=== PATIENT | male | born 1945 | race Caucasian/White ===

== ENCOUNTER 2019-02-06 06:19 | Inpatient (IN) ==
--- NOTE | 2019-01-12 10:10 | PAT Medication Instructions ---
Medication Instructions Date of Service January 12, 2019 Home Medications ibuprofen [Advil] 200 mg PO Q6H PRN vit C,T-Uf-tydew-lutein-zeaxan [PreserVision AREDS-2] 1 tab PO DAILY ASK your surgeon for instructions ibuprofen [Advil] 200 mg PO Q6H PRN STOP taking 2 weeks before surgery (or as soon as possible if surgery is within 2 weeks) vit C,I-Ad-vpkgv-lutein-zeaxan [PreserVision AREDS-2] 1 tab PO DAILY Other Notes If you have any questions please call us at [phone] or [phone] or [phone] or [phone]
--- NOTE | 2019-01-13 10:46 | Anesthesiology Consultation ---
Date of Service January 13, 2019 Assessment & Plan (1) Encounter for pre-operative examination: Chart Review Chart Review: Acceptable Risk for Surgery and Patient seen in Pre Admission Testing Teaching & Discussion Pre-Anesthesia Teaching/Discussion Notes: Instructed NPO after midnight before surgery,except medications with 15 cc of water. Medication instructions provided according to the PAT guidelines. History Surgery Operation Date: 02/06/19 08:15 Proposed Procedures p Right Total Shoulder Arthroplasty versus - Chris Jenkins DO s Right Reverse Total Shoulder Arthroplasty - Chris Jenkins DO Height/Weight Height: 5 ft 10 in Weight: 116.2 kg Allergies Allergy/AdvReac Type Severity Reaction Status Date / Time Sulfa (Sulfonamide Allergy Hives Verified 01/01/19 08:04 Antibiotics) Medications Home Medications Medication Instructions Recorded Confirmed Last Taken ibuprofen [Advil] 200 mg PO Q6H PRN 01/01/19 01/13/19 Unknown vit C,K-Kc-htzkb-lutein-zeaxan 1 tab PO DAILY 01/01/19 01/13/19 Unknown [PreserVision AREDS-2] Past Medical History Medical History Diverticular disease [place] (hard of hearing) Obesity Osteoarthritis Exercise / Class Metabolic Activity III < 4 Walking/Shop/Light housework Past Family History Family History Father Colon cancer Past Surgical History Surgical History History of cardiac cath 20 years ago - no stents/angioplasty History of colonoscopy History of right hip replacement Past Anesthesia History No Hx of Anesthesia Complications and No Family Hx of Anesthesia Complications History of PONV No Hx of PONV and No Hx of Motion Sickness Social History Smoking Status: Never smoker Do You Dip or Chew Tobacco: No (remote hx) Hx Alcohol Use: Yes Alcohol type: beer alcohol intake frequency: holidays/special occasions only Hx Substance Use: No substance use type: does not use Review of Systems Patient denies chest pain, shortness of breath, reflux, cough, wheezing, palpitations. Physical Exam Vital Signs VITALS BP 135/85 P 78 TEMP 97.6 SP02 97%RA RESP 16 PHYSICAL Full neck and c-spine range of motion. Full TMJ range of motion. TMD 2.5 finger breaths Mallampati Score 3 Dentition: intact Lungs: clear throughout to auscultation Cardiac: regular rate and rhythm, no murmurs noted Spine: normal Carotid arteries: negative bruit Extremities: no edema Testing Laboratory Results 01/13/19 11:05 01/13/19 11:05 PT 9.9 Seconds (9.0-12.0) 01/13/19 11:05 INR 1.0 (0.9-1.1) 01/13/19 11:05 APTT 29.8 Seconds (21.0-31.0) 01/13/19 11:05 Blood Type O Positive 01/13/19 11:05 Antibody Screen NEGATIVE 01/13/19 11:05 Electrocardiogram Date: 01/13/19 Findings: + NSR @ (77) Chest X-Ray Date: 01/13/19 Findings: + NAD
[2019-01-13 11:43] LABS: Basophils # (auto) 0.03 K/uL (0-0.2); Basophils % (auto) 0.3 %; Eosinophils # (auto) 0.09 K/uL (0-0.5); Hematocrit (blood only) 46.2 % (42-52); Hemoglobin 15.6 g/dL (14.0-18.0); Immature Granulocytes # (auto) 0.02 K/uL (0.00-0.02); Immature Granulocytes % (auto) 0.2 %; Lymphocytes # (auto) 1.55 K/uL (1.2-3.4); Lymphocytes % (auto) 16.6 %; Mean Corpuscular Hemoglobin 31.5 pg (25-34); Mean Corpuscular Hgb Conc 33.8 g/dL (32-36); Mean Corpuscular Volume 93.3 fL (80-100); Mean Platelet Volume 9.7 fL (7.4-10.4); Monocytes # (auto) 1.13 K/uL (0.11-0.59); Monocytes % (auto) 12.1 %; Neutrophils # (auto) 6.53 K/uL (1.4-6.5); Neutrophils % (auto) 69.8 %; Platelet Count 354 K/uL (130-400); RDW Coefficient of Variation 13.6 % (11.5-14.5); RDW Standard Deviation 46.2 fL (36.4-46.3); Red Blood Count 4.95 M/uL (4.7-6.1); White Blood Count 9.35 K/uL (4.8-10.8)
--- NOTE | 2019-01-13 11:43 | XRay Report ---
XR chest Pre-admission PA/Lat CLINICAL HISTORY: Preoperative chest COMPARISON STUDY: No previous studies for comparison. FINDINGS: The cardiac and mediastinal contours are normal. There is no evidence of focal pulmonary co nsolidation. There is no evidence of failure. No pleural effusions are visualized.[ IMPRESSION: No active disease in the chest. Electronically signed by: Randy Orozco M.D. 01/13/2019 11:42 AM
[2019-01-13 11:51] LABS: BUN Creatinine Ratio 15.5 (10-20); Calcium 9.3 mg/dl (8.5-10.1); Creatinine Clr Calc Pharmacy 96.1 ml/min; Est GFR (African American) 99.2; Est GFR (Non-African American) 85.6; Potassium 4.4 mmol/L (3.5-5.1)
[2019-01-13 11:54] LABS: Partial Thromboplastin Ratio 1.1; Partial Thromboplastin Time 29.8 Seconds (21.0-31.0); Prothrombin Time 9.9 Seconds (9.0-12.0)
--- NOTE | 2019-02-05 14:58 | History & Physical Report ---
Date of Service February 05, 2019 Assessment & Plan (1) Osteoarthritis of right shoulder: We will proceed with a right total shoulder arthroplasty. Postoperatively he will be placed in a sling and kept overnight in the hospital for postoperative medical management. He plans to go to outpatient physical therapy at [facility] in [place] upon discharge. Present on Admission?: Yes History of Present Illness Chief Complaint: Primary osteoarthritis of the right shoulder Primary Care Provider: NO PCP Jeffy is a pleasant 73-year-old male who has been dealing with chronic increasing right shoulder pain. X-rays and clinical examination have been diagnostic for severe osteoarthritis of the right shoulder. After failing conservative treatment, he has elected to proceed with a right total shoulder arthroplasty. Allergies Allergy/AdvReac Type Severity Reaction Status Date / Time Sulfa (Sulfonamide Allergy Hives Verified 01/01/19 08:04 Antibiotics) Home Medications Home Medications Medication Instructions Recorded Confirmed Type ibuprofen [Advil] 200 mg PO Q6H PRN 01/01/19 01/13/19 History vit C,C-Fp-wajrc-lutein-zeaxan 1 tab PO DAILY 01/01/19 01/13/19 History [PreserVision AREDS-2] Past Med/Surg History Medical History Diverticular disease [place] (hard of hearing) Obesity Osteoarthritis Surgical History History of cardiac cath 20 years ago - no stents/angioplasty History of colonoscopy History of right hip replacement Family History Father Colon cancer Social History Preferred Language: [place] Communication Ability: Effective Senior [employer] Consultant Required: No Beliefs That Will Affect Care: None Current Living Situation: Spouse Feels Safe at Home: Yes Smoking Status: Never smoker Second Hand Exposure: No ; Hx Alcohol Use: Yes Alcohol type: beer Hx Substance Use: No Review of Systems All systems reviewed & are unremarkable except as noted in HPI & below Physical Exam Constitutional: WD/WN, vitals as above Eyes: PERRL, conjunctivae normal, anicteric sclerae ENMT: external ear and nose normal, oropharynx normal Neck: trachea midline, no thyromegaly Respiratory: normal respiratory effort Cardiovascular: RRR, no murmur, no edema Gastrointestinal (Abdomen): normal bowel sounds, soft, nontender, no hepatosplenomegaly Musculoskeletal: Physical examination of the right shoulder reveals decreased range of motion and crepitis throughout. There is good strength with full can testing and external rotation. There is tenderness palpation along the anterior glenohumeral joint line. The right upper extremity is neurovascularly intact. Psychiatric: A+Ox3, euthymic affect Results & Data Diagnostic Findings Radiographs of the right shoulder show osteoarthritis of the glenohumeral joint. There is joint space narrowing, osteophyte formation, and [id number]-[id number]-[id number] articulation.
[~2019-02-06 06:19] MED LIST: ACETAMINOPHEN 500 MG TAB PO SCH; CEFAZOLIN 2000MG 2,000 MG/15 ML SYR IV SCH; FAMOTIDINE 20 MG TAB PO SCH; GABAPENTIN 300 MG CAP PO SCH; LR 15ML/HR IV SCH; LR 60ML/HR IV SCH; ROPIVACAINE 0.5% HCL/PF 150 MG, BUPIVACAINE 0.5% MPF 30 ML, EPINEPHrine 30MG/30ML (OR U... INSTIL SCH; TRANEXAMIC ACID 1,000 MG **IV Intra-op IV SCH; TRANEXAMIC ACID 1,000 MG **IV Pre-op IV SCH
[2019-02-06] MEDS ORDERED: BUPIVACAINE 0.5 % 5 MG/1 ML PF 10ML VIAL ONE (06:25)
--- NOTE | 2019-02-06 06:45 | History & Physical Bridge Note ---
Date of Service February 06, 2019 History & Physical Bridge Note I have examined the patient, reviewed the History & Physical and in the interval since the performance of the History & Physical I have noted the following changes of clinical significance: no changes noted
[2019-02-06] MEDS ORDERED: dexAMETHasone 4 MG TAB PO ONE (07:04)
[2019-02-06] MEDS ORDERED: ONDANSETRON INJ 2 MG/ML 2 ML VIAL IV PRN ×2 (08:11→12:15)
[2019-02-06] MEDS ORDERED: fentaNYL citrate 100 MCG/2 ML VIAL IV PRN (08:11)
[2019-02-06] MEDS ORDERED: ePHEDrine sulfate 50 MG/ML AMP IV PRN (08:11)
[2019-02-06] MEDS ORDERED: ATROPINE SULFATE 0.1 MG/ML 10ML SYR IV PRN (08:11)
[2019-02-06] MEDS ORDERED: MIDAZOLAM HCL 1 MG/ML 2ML VIAL ONE (08:13)
[2019-02-06] MEDS ORDERED: fentaNYL citrate 100 MCG/2 ML VIAL ONE ×2 (08:13→09:51)
[2019-02-06] MEDS ORDERED: ORTHO JOINT ANESTHETIC ONE (08:17)
[2019-02-06] MEDS ORDERED: ROCURONIUM BROMIDE 10 MG/ML 5 ML VIAL ONE (09:47)
[2019-02-06] MEDS ORDERED: NEOSTIGMINE METHYLSULFATE 5 MG/5 ML SYR ONE (09:47)
[2019-02-06] MEDS ORDERED: DEXAMETHASONE SOD INJ 4 MG/ML VIAL ONE (09:47)
[2019-02-06] MEDS ORDERED: ONDANSETRON INJ 2 MG/ML 2 ML VIAL ONE (09:47)
[2019-02-06] MEDS ORDERED: PROPOFOL IV EMULSION 10 MG/ML 20 ML VIAL IV ONE (09:47)
[2019-02-06] MEDS ORDERED: GLYCOPYRROLATE 0.2 MG/ML VIAL ONE (09:47)
--- NOTE | 2019-02-06 10:12 | Operative Report ---
PG Post Operative Report Pre & Post Diagnosis Operation Date: 02/06/19 08:40 Pre-Op Diagnosis: RIGHT SHOULDER DEGERATIVE JOINT DISEASE Post-Op Diagnosis: RIGHT SHOULDER DEGERATIVE JOINT DISEASE I identified the patient and participated in the time-out.: Yes Procedure Operation Date: 02/06/19 08:40 Actual Procedures p Right Total Shoulder Arthroplasty(Right) - Chris Jenkins DO Surgeon Chris Jenkins DO Scoop Filler Chris Van PAC Estimated Blood Loss 250 Findings Consistent with Post-Op Diagnosis Specimens Right humeral head Complications none Disposition Disposition: Recovery Room Indications Jeffy is a pleasant 73-year-old male who presented my office with chronic increasing right shoulder pain. X-rays and clinical examination were diagnostic for primary osteoarthritis of the right shoulder. After failing conservative treatment, he elected to proceed with a right total shoulder arthroplasty. Description of Procedure Implants used: I used a Biomet Comprehensive total shoulder arthroplasty system with a size 16 press fit mini humeral stem, a size 50 x 21 eccentric humeral head, and a large size glenoid with a Regenerex peg. The glenoid was cemented in place with Palacos G cement. The patient arrived at [facility] for the above procedure. There were seen in the preoperative holding area and the operative extremity was identified and signed. They were given a preoperative antibiotic and an interscalene nerve block. They were taken back to the operating room, laid on table in supine position, and put under general anesthesia. They were then put into the beachchair position. The shoulder was then prepped and draped in sterile fashion. A timeout was done and the patient and the operative extremity was properly identified. A deltopectoral approach was used. Dissection was taken down through the fascia and the deltoid was retracted laterally and the conjoined tendon was retracted medially. The anterior shoulder was exposed. The long head of the biceps tendon was tenodesed to the upper border of the pectoralis major. The subscapularis was then released off the lesser tuberosity with a centimeter of cuff tissue remaining. The inferior capsule was released and the humeral head was dislocated. The rotator cuff was inspected and intact. A canal finding reamer was sent down the center of the humeral canal. Sequential reaming up to a size 16 reamer was done. Offset reamer a proximal humeral resection guide was placed. The proximal humerus was resected at 135 of inclination and 30 of retroversion. Inferior osteophytes were then removed and the glenoid was exposed. Time was spent doing an appropriate labral release. The glenoid measured to be a size large. A 3.2 mm Steinmann pin was placed in the central hole of the glenoid vault pin guide. The glenoid was then reamed with a propeller reamer. The central post cutter was then used to prepare for the central boss. The cannulated peripheral peg drill guide was then placed and 3 peg holes were drilled. The final size large glenoid was then cemented in place with Palacos G cement. Surrounding soft tissues were then injected with 100 cc of an orthopedic pain control cocktail. Once cement had dried the proximal humerus was once again exposed. Sequential broaching of the humerus up to a size 16 broach was done. Off that broach a size 50 x 21 eccentric humeral head was trialed. The shoulder was then reduced, brought through a full range of motion and felt to be stable. The shoulder was then dislocated and the broach was removed. The final size 16 mini humeral stem implant was then impacted into place. A size 50 x 21 eccentric humeral head was then impacted onto the humeral stem. The shoulder was then reduced and once again brought through a full range of motion and felt to be stable. The subscapularis was then tenodesed back to the lesser tuberosity with transosseous FiberWire sutures and side to side sutures with the arm in 45 of external rotation. 2 sutures were placed in the lateral rotator interval. A dilute betadyne lavage was then done for 3 minutes. The joint was then irrigated with normal saline solution. Hemostasis was obtained. The skin was then closed with 2-0 Vicryl, 3-0V lock suture, and carol. A soft dressing was placed as well as a regular arm sling. The patient was then extubated and transferred to a hospital bed. There were taken to the postanesthesia care unit in stable condition. The tolerated the procedure well. I attest to the content of the Intraoperative Record and any orders documented therein. Any exceptions are noted below.
--- NOTE | 2019-02-06 11:42 | Anesthesiology Progress Note ---
Date of Service February 06, 2019 Anesthesia Post Procedure Vital Signs Vital Signs: Temp Pulse Pulse Resp BP BP Pulse Ox 02/06/19 11:35 97.3 F L 72 20 115/41 L 95 02/06/19 11:25 70 18 104/71 95 02/06/19 11:15 70 15 104/62 96 02/06/19 11:05 70 19 115/70 96 02/06/19 10:55 68 16 125/68 96 02/06/19 10:49 96.8 F L 88 15 131/73 96 02/06/19 06:41 98.2 F 90 18 154/98 H 96 Transfer of Care Handoff Completed per policy Notes Mental Status: alert / awake / arousable and participated in evaluation Patient Amnestic to Procedure: Yes Nausea / Vomiting: adequately controlled Pain: adequately controlled Airway Patency, RR, SpO2: stable & adequate BP & HR: stable & adequate Hydration State: stable & adequate Anesthetic Complications: no major complications apparent and Pt Satisfied with anesthetic care
--- NOTE | 2019-02-06 11:45 | XRay Report ---
XR shoulder RT min 2V routine CLINICAL HISTORY: Post shoulder surgery COMPARISON STUDY: None. FINDINGS: Status post reverse right total shoulder arthroplasty. The hardware appears intact. Skin st aples are in place. There are low lung volumes with bibasilar densities suggesting atelectasis. The h eart is mildly enlarged. IMPRESSION: Status post reverse right total shoulder arthroplasty. No evidence for hardware complica tion. ACT 112: Negative or not required by law. Electronically signed by: Adolfo Ramirez M.D. 02/06/2019 11:44 AM
[2019-02-06] MEDS ORDERED: NALOXONE HCL 0.4 MG/1 ML VIAL/CARP IV PRN (12:15)
[2019-02-06] MEDS ORDERED: HYDROmorphone INJ 0.5 MG/0.5 ML SYR IV PRN (12:15)
[2019-02-06] MEDS ORDERED: OXYCODONE HCL IR 5 MG TAB (IMMEDIATE RELEASE) PO PRN (12:15)
[2019-02-06] MEDS ORDERED: bisacodyL 10 MG SUPP PR PRN (12:15)
[2019-02-06] MEDS ORDERED: MAGNESIUM HYDROXIDE SUSP 30 ML UDC PO PRN (12:15)
[2019-02-06] MEDS ORDERED: METOCLOPRAMIDE HCL INJ 5 MG/ML 2 ML VIAL IV PRN (12:15)
[2019-02-06] MEDS: SODIUM CHLORIDE 0.9% 1000ML 1,000 ML IV SCH ×2 (13:39→23:40)
[2019-02-06] MEDS ORDERED: COUGH DROP (SUGAR FREE) LOZ 24 LOZ/1 BOX BUCCAL PRN (13:54)
[2019-02-06] MEDS: ACETAMINOPHEN 500 MG TAB PO SCH ×2 (16:06→23:59)
[2019-02-06] MEDS: CEFAZOLIN 2000MG 2,000 MG/15 ML SYR IV SCH ×2 (16:06→23:59)
[2019-02-06] MEDS: KETOROLAC TROMETHAMINE 15 MG/ML VIAL IV SCH ×2 (17:27→23:59)
[2019-02-06] MEDS ORDERED: SENNA 8.6 MG TAB PO SCH (21:00)
[2019-02-06] MEDS: DOCUSATE SODIUM 100 MG CAP PO SCH (21:01)
[2019-02-07] MEDS: KETOROLAC TROMETHAMINE 15 MG/ML VIAL IV SCH ×2 (05:17→11:03)
[2019-02-07 06:51] LABS: Hematocrit (blood only) 40.4 % (42-52); Hemoglobin 13.5 g/dL (14.0-18.0); Immature Granulocytes # (auto) 0.05 K/uL (0.00-0.02); Immature Granulocytes % (auto) 0.2 %; Lymphocytes # (auto) 1.28 K/uL (1.2-3.4); Lymphocytes % (auto) 6.4 %; Mean Corpuscular Hemoglobin 31.5 pg (25-34); Mean Corpuscular Hgb Conc 33.4 g/dL (32-36); Mean Corpuscular Volume 94.4 fL (80-100); Mean Platelet Volume 9.2 fL (7.4-10.4); Monocytes # (auto) 2.17 K/uL (0.11-0.59); Monocytes % (auto) 10.8 %; Neutrophils # (auto) 16.65 K/uL (1.4-6.5); Neutrophils % (auto) 82.6 %; Platelet Count 350 K/uL (130-400); RDW Coefficient of Variation 13.2 % (11.5-14.5); RDW Standard Deviation 45.4 fL (36.4-46.3); Red Blood Count 4.28 M/uL (4.7-6.1); White Blood Count 20.15 K/uL (4.8-10.8)
[2019-02-07 07:33] LABS: BUN Creatinine Ratio 16.4 (10-20); Creatinine Clr Calc Pharmacy 79.4 ml/min; Est GFR (African American) 79.6; Est GFR (Non-African American) 68.7; Potassium 4.6 mmol/L (3.5-5.1)
[2019-02-07] MEDS: ACETAMINOPHEN 500 MG TAB PO SCH (07:41)
[2019-02-07] MEDS ORDERED: dexAMETHasone 4 MG TAB PO SCH (08:00)
--- NOTE | 2019-02-07 08:07 | Orthopedic Progress Note ---
Date of Service February 07, 2019 Assessment & Plan (1) History of total replacement of right shoulder joint: Overall he is doing very well. Is not having any pain in the right shoulder. He will be seen by physical therapy today for range of motion and ambulation. He can be discharged home later this morning. He will follow-up with orthopedics in 2 weeks. He does not want any pain medications upon discharge. Present on Admission?: Yes Subjective Jeffy was seen and examined at bedside this morning. Overall is doing very well. Is not having much pain in the right shoulder. He is happy with his progress to this point. He has no complaints. Physical Exam Musculoskeletal: On physical examination of the right shoulder, the dressing is clean and dry. He is wearing a sling as instructed. His radial, median, and ulnar nerves are checked and intact his wrist. His axillary nerve was not checked yet. Results & Data Vital Signs (Past 12 Hours) Vital Signs Temp Pulse Resp BP Pulse Ox 02/07/19 07:22 36.5 C 76 18 124/69 97 02/07/19 03:30 83 120/68 02/07/19 02:11 36.4 C L 77 16 161/84 H 96 02/06/19 23:17 36.4 C L 73 16 119/69 94 Laboratory Results H & H 01/13/19 02/07/19 Range/Units 11:05 06:31 Hgb 15.6 13.5 L (14.0-18.0) g/dL Hct 46.2 40.4 L (42-52) % Coagulation 01/13/19 Range/Units 11:05 INR 1.0 (0.9-1.1) Diagnostic Findings Postoperative x-rays of the right shoulder show the prosthesis to be in anatomic alignment without any evidence of fracture, dislocation, or loosening. PG Care Time/CCT Total # of Minutes Spent Total Time Spent with Patient: Total time spent is greater than 50% in coordination of care (as documented) at patient's floor/unit and/or counseling patient:
--- NOTE | 2019-02-07 08:08 | Discharge Summary ---
Date of Service February 07, 2019 Admission HPI Per Admitting Provider Jeffy is a pleasant 73-year-old male who has been dealing with chronic increasing right shoulder pain. X-rays and clinical examination have been diagnostic for severe osteoarthritis of the right shoulder. After failing conservative treatment, he has elected to proceed with a right total shoulder arthroplasty. Principal Diagnosis Right total shoulder arthroplasty Discharge Data Allergies Allergy/AdvReac Type Severity Reaction Status Date / Time Sulfa (Sulfonamide Allergy Hives Verified 02/06/19 06:40 Antibiotics) Consultations 02/06/19 12:15 Consult Case Management - Discharge Planning Routine Procedures Performed Operation Date: 02/06/19 08:40 Actual Procedures p Right Total Shoulder Arthroplasty(Right) - Chris Jenkins DO Ordered Studies 02/06/19 05:00 US - OR guided needle placemen Urgent Hospital Course (1) History of total replacement of right shoulder joint: On February 06, 2019 call arrived at [facility] and underwent a right total shoulder arthroplasty without complication. He had a general anesthetic and a right interscalene nerve block. Postoperatively he was placed in a sling and discharged to general orthopedic floors. His hospital course was uneventful. On postop day #1 his H&H was stable and his pain was well controlled. He was able to participate well with physical therapy doing ambulation and range of motion exercises. He was then discharged home with physical therapy. He will follow-up with orthopedics in 2 weeks. Total Time Total Time Spent Total Time Spent (In Minutes): 20 Discharge Plan Discharge Items Reason For Visit: RIGHT SHOULDER DEGERATIVE JOINT DISEASE Medications and DC Order Prescriptions: No Action ibuprofen [Advil] 200 mg Tablet 200 mg PO Q6H PRN (Reason: Pain) RF: 0 PreserVision AREDS-2 [id number]-mg Capsule 1 tab PO DAILY RF: 0 Admission Data Admit Date/Time: 02/06/19 10:51 Attending Provider: Chris Jenkins Admit Provider: Chris Jenkins Primary Care Provider: PCPHUNG
[2019-02-07] MEDS: DOCUSATE SODIUM 100 MG CAP PO SCH (08:46)
[2019-02-07] MEDS ORDERED: MULTIVITAMIN TAB PO SCH (09:00)
[2019-02-07] MEDS ORDERED: NON-FORMULARY MEDICATION (Vit C,E-Zn-Coppr-Lutein-Zeaxan [Preservision Areds-2] 1 TAB) PO SCH (09:00)
== END 2019-02-07 12:09 | disposition home or self-care (01) | DRG 483 ==
LOC: ASU 06:19 → 3E 10:51

== ENCOUNTER 2022-03-30 12:17 | Inpatient (IN) ==
[2022-03-30 13:38] LABS: Basophils # (auto) 0.04 K/uL (0-0.2); Basophils % (auto) 0.7 %; Eosinophils # (auto) 0.19 K/uL (0-0.50); Eosinophils % (auto) 3.2 %; Hematocrit (blood only) 39.8 % (42.0-52.0); Hemoglobin 13.9 g/dl (14.0-18.0); Immature Granulocytes # (auto) 0.01 K/uL (0.01-0.20); Immature Granulocytes % (auto) 0.2 %; Lymphocytes # (auto) 1.35 K/uL (1.2-3.4); Lymphocytes % (auto) 22.7 %; Mean Corpuscular Hemoglobin 30.8 pg (25.0-34.0); Mean Corpuscular Hgb Conc 34.9 g/dL (32.0-36.0); Mean Corpuscular Volume 88.2 fL (80.0-100.0); Mean Platelet Volume 9.5 fL (9.4-12.4); Monocytes # (auto) 0.95 K/uL (0.11-0.59); Neutrophils # (auto) 3.41 K/uL (1.40-6.50); Neutrophils % (auto) 57.2 %; Platelet Count 314 K/uL (130-400); RDW Coefficient of Variation 13.1 % (11.5-14.5); RDW Standard Deviation 42.3 fL (36.4-46.3); Red Blood Count 4.51 M/uL (4.70-6.10); White Blood Count 5.95 K/ul (4.8-10.8)
[2022-03-30 13:40] LABS: Appearance Urine Clear (Clear); Bilirubin Urine Negative (Negative); Blood Urine Negative (Negative); Color Urine Yellow; Glucose Urine UA Negative (Negative); Ketones Urine 1+ (Negative); Leukocyte Esterase Urine Negative (Negative); Nitrite Urine Negative (Negative); Protein Urine Negative (Negative); Specific Gravity Urine 1.013 (1.000-1.030); Urobilinogen Urine Negative (Negative); pH Urine 5.5 (4.5-7.5)
[2022-03-30] MEDS ORDERED: SODIUM CHLORIDE 0.9% 1000ML 1,000 ML IV ONE ×2 (13:55→16:29)
[2022-03-30 14:03] LABS: Albumin Globulin Ratio 1.4 (0.9-2); Albumin Level 4.1 gm/dl (3.4-5.0); BUN Creatinine Ratio 14.6 (10-20); Bilirubin,Total 1.2 mg/dl (0.2-1.0); Calcium 9.4 mg/dl (8.5-10.1); Creatinine Clr Calc Pharmacy 95.5 ml/min; Est GFR (Non-African American) 87.1 ml/min; Globulin 2.9 gm/dl (2.5-4.0); Potassium 4.3 mmol/L (3.5-5.1)
--- NOTE | 2022-03-30 14:14 | Emergency Department Note ---
Impression & Plan Acute pancreatitis, Acute hyponatremia ED Provider Note NAME: AYAD CORONA AGE: 76 SEX: M : 1945 ARRIVES VIA: Walk-In INFORMANT: Patient, ED PROVIDER(S): Chano Llanos DO CHIEF COMPLAINT: Abdominal pain HPI: The patient is a 76-year-old male who presented to the emergency department for an evaluation of abdominal pain. The patient presents with lower abdominal pain that he noticed with coughing and movement. He denies having any nausea or vomiting. He also describes generalized weakness and joint pain. He states that the symptoms began approximate 2 days ago. He denies having any fever. He denies having any rectal bleeding. He has not been seen by his family doctor for the symptoms. The patient was started on Keytruda recently and is unsure if this is related to his presentation today. ROS: See above HPI for pertinent positives & negatives. A total of 10 systems reviewed and were otherwise negative. PAST MEDICAL HISTORY: See Below PAST SURGICAL HISTORY: See Below FAMILY HISTORY: See Below SOCIAL HISTORY: See Below HOME MEDICATIONS: See Below ALLERGIES: See Below VITALS: See Below PHYSICAL EXAMINATION: GENERAL: Patient is awake alert in no acute distress patient is resting comf ortably and showing no signs of anxiety EYES: The conjunctivae are clear. The pupils are round and reactive. EARS, NOSE, MOUTH AND THROAT: The nose is without any evidence of any deformity. Mucous membranes are moist. Tongue is midline. NECK: The neck is nontender and supple. RESPIRATORY: Normal respiratory effort is noted there is no evidence of wheezing rhonchi or rales CARDIOVASCULAR: Regular rate and rhythm noted there no murmurs rubs or gallops normal S1 normal S2. GASTROINTESTINAL: The abdomen is soft and nondistended. There is right lower quadrant and suprapubic tenderness to palpation but no guarding or rigidity. MUSCULOSKELETAL/EXTREMITIES: There is no evidence of gross deformity full range of motion is noted in the hips and shoulders. SKIN: There is no obvious evidence of any rash. There are no petechiae, pallor or cyanosis noted. NEUROLOGIC: Patient is awake alert and oriented x3 MEDICAL DECISION MAKING: The patient is a 76-year-old male who presented to the emergency department for abdominal pain. The patient's history and physical exam appear to be consistent with an acute onset of pain over the last 48 hours. Patient's physical exam was concerning with significant pain. For this reason further laboratory and radi ographic studies were obtained. The patient was treated with IV fluids in the emergency department. He did not wish to have any pain medication while he was in the emergency department. He was concerned that his presentation today could be related to his new medication that he started. I discussed the patient's laboratory and radiographic studies with him. He was found to have signs of pancreatitis on CT but laboratory studies are reassuring. This would be a new diagnosis for the patient. He was also found to have hyponatremia. Because of his findings I discussed his condition with the on-call [facility] hospitalist. They have agreed to evaluate the patient in the emergency depar tment for further management and disposition. The patient was agreeable with inpatient work-up. Triage Nursing notes reviewed. Prior medical records reviewed Vital Signs: reviewed and remarkable for no significant abnormalities Differential diagnosis: Etiologies such as appendicitis, diverticulitis, obstruction, inflammatory bowel disease, renal colic, PUD, biliary pathology, pancreatitis, mesenteric ischemia, aortic pathology, infections, genitourinary, UTI, perforated viscus, as well as others were entertained. ER treatment provided: See below Diagnostics interpreted by me: ECG: none Cardiac Monitoring: An order was placed for continuous cardiac monitoring. The monitor shows a rate of 87 bpm with sinus rhythm. Laboratory studies: As stated above and show below. Imaging studies: See below. Radiographic imaging was reviewed by myself Consultation(s): I discussed this case with Dr. Falk [facility]. Past Med/Surg History Medical History (Updated 03/30/22 @ 17:07 by Musa Falk MD) Diverticular disease [place] (hard of hearing) Hypothyroidism Melanoma Diagnosed Feb 2021 - [facility] - not known to be metastatic. Last PET Jan 2022. 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 Beliefs That Will Affect Care: None marital status: Current Living Situation: Spouse Feels Safe at Home: Yes Assistive Devices: Glasses Allergies Allergies Allergy/AdvReac Type Severity Reaction Status Date / Time Sulfa (Sulfonamide Allergy Hives Verified 02/06/19 06:40 Antibiotics) Home Meds Home Medications Medication Instructions Recorded Confirmed ibuprofen 200 mg tablet (Advil) 200 mg PO Q6H PRN Pain 01/01/19 03/30/22 vit C 250 mg-vit E 90 mg-zinc 40 1 tab PO DAILY 01/01/19 03/30/22 mg-copper 1 [id number] capsule (PreserVision AREDS-2) levothyroxine 100 mcg tablet 100 mcg PO DAILY 03/30/22 03/30/22 Results & Data (ED) Vital Signs Vital Signs - 24 hr 03/30/22 12:24 03/30/22 13:40 03/30/22 14:00 Temperature 36.8 C Temperature Source Temporal Artery Scan Pulse Rate 84 Pulse Rate [Left Finger] 85 Pulse Rate from SpO2 Sensor Pulse Rhythm [Left Finger] Regular Pulse Strength [Left Finger] Normal Respiratory Rate 20 20 Respiratory Effort / Characteristics Non-Labored Spontaneous Non-Labored Spontaneous Respiratory Depth Normal Normal Respiratory Pattern Regular Regular Blood Pressure 114/71 106/60 Blood Pressure [Right Arm] 132/71 Blood Pressure Mean 85 75 Blood Pressure Mean [Right Arm] 91 Blood Pressure Position [Right Arm] Sitting Pulse Oximetry 96 97 Oxygen Delivery Method Room Air Room Air Sepsis Recent Fever Within 48 Hours No Sepsis New/Unexplained Change in Mental Status No Sepsis Action Taken by Nursing No Action Required 03/30/22 14:00 03/30/22 14:30 03/30/22 14:30 Temperature Temperature Source Pulse Rate 84 78 Pulse Rate [Left Finger] Pulse Rate from SpO2 Sensor 83 79 Pulse Rhythm [Left Finger] Pulse Strength [Left Finger] Respiratory Rate 19 16 Respiratory Effort / Characteristics Respiratory Depth Respiratory Pattern Blood Pressure 121/77 Blood Pressure [Right Arm] Blood Pressure Mean 91 Blood Pressure Mean [Right Arm] Blood Pressure Position [Right Arm] Pulse Oximetry 99 98 Oxygen Delivery Method Sepsis Recent Fever Within 48 Hours Sepsis New/Unexplained Change in Mental Status Sepsis Action Taken by Nursing 03/30/22 15:00 03/30/22 15:00 03/30/22 15:30 Temperature Temperature Source Pulse Rate 76 Pulse Rate [Left Finger] Pulse Rate from SpO2 Sensor 77 Pulse Rhythm [Left Finger] Pulse Strength [Left Finger] Respiratory Rate 4 L Respiratory Effort / Characteristics Respiratory Depth Respiratory Pattern Blood Pressure 99/57 L 115/62 Blood Pressure [Right Arm] Blood Pressure Mean 71 79 Blood Pressure Mean [Right Arm] Blood Pressure Position [Right Arm] Pulse Oximetry 97 Oxygen Delivery Method Sepsis Recent Fever Within 48 Hours Sepsis New/Unexplained Change in Mental Status Sepsis Action Taken by Nursing 03/30/22 15:30 03/30/22 16:00 03/30/22 16:01 Temperature Temperature Source Pulse Rate 77 82 Pulse Rate [Left Finger] Pulse Rate from SpO2 Sensor 80 Pulse Rhythm [Left Finger] Pulse Strength [Left Finger] Respiratory Rate 16 26 H Respiratory Effort / Characteristics Respiratory Depth Respiratory Pattern Blood Pressure 119/63 Blood Pressure [Right Arm] Blood Pressure Mean 81 Blood Pressure Mean [Right Arm] Blood Pressure Position [Right Arm] Pulse Oximetry 98 Oxygen Delivery Method Sepsis Recent Fever Within 48 Hours Sepsis New/Unexplained Change in Mental Status Sepsis Action Taken by Nursing 03/30/22 16:01 Temperature Temperature Source Pulse Rate 80 Pulse Rate [Left Finger] Pulse Rate from SpO2 Sensor 80 Pulse Rhythm [Left Finger] Pulse Strength [Left Finger] Respiratory Rate 10 L Respiratory Effort / Characteristics Respiratory Depth Respiratory Pattern Blood Pressure Blood Pressure [Right Arm] Blood Pressure Mean Blood Pressure Mean [Right Arm] Blood Pressure Position [Right Arm] Pulse Oximetry 99 Oxygen Delivery Method Sepsis Recent Fever Within 48 Hours Sepsis New/Unexplained Change in Mental Status Sepsis Action Taken by Group Home Medications Current Medication List: was personally reviewed by nm Laboratory Data Attestation: I reviewed the patient's lab results. 03/30/22 13:10 03/30/22 13:10 Lab Results 03/30/22 03/30/22 03/30/22 Range/Units 13:05 13:10 13:10 WBC 5.95 (4.8-10.8) K/ul RBC 4.51 L (4.70-6.10) M/uL Hgb 13.9 L (14.0-18.0) g/dl Hct 39.8 L (42.0-52.0) % MCV 88.2 (80.0-100.0) fL MCH 30.8 (25.0-34.0) pg MCHC 34.9 (32.0-36.0) g/dL RDW Std Deviation 42.3 (36.4-46.3) fL RDW Coeff of Joshua 13.1 (11.5-14.5) % Plt Count 314 (130-400) K/uL MPV 9.5 (9.4-12.4) fL Immature Gran % (Auto) 0.2 % Neut % (Auto) 57.2 % Lymph % (Auto) 22.7 % Howard % (Auto) 16.0 % Eos % (Auto) 3.2 % Baso % (Auto) 0.7 % Neut # (Auto) 3.41 (1.40-6.50) K/uL Lymph # (Auto) 1.35 (1.2-3.4) K/uL Howard # (Auto) 0.95 H (0.11-0.59) K/uL Eos # (Auto) 0.19 (0-0.50) K/uL Baso # (Auto) 0.04 (0-0.2) K/uL Immature Gran # (Auto) 0.01 (0.01-0.20) K/uL PT (9.0-12.0) Seconds INR (0.9-1.1) APTT (21.0-31.0) Seconds PTT Ratio Sodium 126 L (136-145) mmol/L Potassium 4.3 (3.5-5.1) mmol/L Chloride 93 L (98-107) mmol/L Carbon Dioxide 29 (21-32) mmol/L Anion Gap 4 (3-11) BUN 12 (6-23) mg/dl Creatinine 0.82 (0.6-1.4) mg/dl Est Cr Clr Drug Dosing 95.5 ml/min Est GFR ( Amer) 101.0 ml/min Est GFR (Non-Af Amer) 87.1 ml/min BUN/Creatinine Ratio 14.6 (10-20) Glucose 172 H (70-99(Fasting)) mg/dl Osmolality (280-300) mOsm/kg Calcium 9.4 (8.5-10.1) mg/dl Total Bilirubin 1.2 H (0.2-1.0) mg/dl AST 20 (13-39) U/L ALT 22 (7-52) U/L Alkaline Phosphatase 86 (34-104) U/L Total Creatine Kinase 121 (30-223) U/L Total Protein 7.0 (6.0-8.3) gm/dl Albumin 4.1 (3.4-5.0) gm/dl Globulin 2.9 (2.5-4.0) gm/dl Albumin/Globulin Ratio 1.4 (0.9-2) Triglycerides 103 (0-150) mg/dl Lipase 47 (11-82) U/L TSH (0.300-4.500) uIu/ml Free T4 (0.61-1.60) ng/dl Urine Color Urine Appearance (Clear) Urine pH (4.5-7.5) Ur Specific [place] (1.000-1.030) Urine Protein (Negative) Urine Glucose (UA) (Negative) Urine Ketones (Negative) Urine Blood (Negative) Urine Nitrite (Negative) Urine Bilirubin (Negative) Urine Urobilinogen (Negative) Ur Leukocyte Esterase (Negative) Ur Random Sodium mmol/L Lyme Disease IgG Ab (Negative) Lyme Disease IgM Ab (Negative) SARS-CoV-2 (PCR) NEGATIVE (Negative) Influenza Type A (PCR) Negative (Neg) Influenza Type B (PCR) Negative (Neg) RSV (RT-PCR) Negative (Neg) 03/30/22 03/30/22 03/30/22 Range/Units 13:10 13:10 13:10 WBC (4.8-10.8) K/ul RBC (4.70-6.10) M/uL Hgb (14.0-18.0) g/dl Hct (42.0-52.0) % MCV (80.0-100.0) fL MCH (25.0-34.0) pg MCHC (32.0-36.0) g/dL RDW Std Deviation (36.4-46.3) fL RDW Coeff of Joshua (11.5-14.5) % Plt Count (130-400) K/uL MPV (9.4-12.4) fL Immature Gran % (Auto) % Neut % (Auto) % Lymph % (Auto) % Howard % (Auto) % Eos % (Auto) % Baso % (Auto) % Neut # (Auto) (1.40-6.50) K/uL Lymph # (Auto) (1.2-3.4) K/uL Howard # (Auto) (0.11-0.59) K/uL Eos # (Auto) (0-0.50) K/uL Baso # (Auto) (0-0.2) K/uL Immature Gran # (Auto) (0.01-0.20) K/uL PT (9.0-12.0) Seconds INR (0.9-1.1) APTT (21.0-31.0) Seconds PTT Ratio Sodium (136-145) mmol/L Potassium (3.5-5.1) mmol/L Chloride (98-107) mmol/L Carbon Dioxide (21-32) mmol/L Anion Gap (3-11) BUN (6-23) mg/dl Creatinine (0.6-1.4) mg/dl Est Cr Clr Drug Dosing ml/min Est GFR ( Amer) ml/min Est GFR (Non-Af Amer) ml/min BUN/Creatinine Ratio (10-20) Glucose (70-99(Fasting)) mg/dl Osmolality 270 L (280-300) mOsm/kg Calcium (8.5-10.1) mg/dl Total Bilirubin (0.2-1.0) mg/dl AST (13-39) U/L ALT (7-52) U/L Alkaline Phosphatase (34-104) U/L Total Creatine Kinase (30-223) U/L Total Protein (6.0-8.3) gm/dl Albumin (3.4-5.0) gm/dl Globulin (2.5-4.0) gm/dl Albumin/Globulin Ratio (0.9-2) Triglycerides (0-150) mg/dl Lipase (11-82) U/L TSH (0.300-4.500) uIu/ml Free T4 (0.61-1.60) ng/dl Urine Color Yellow Urine Appearance Clear (Clear) Urine pH 5.5 (4.5-7.5) Ur Specific [place] 1.013 (1.000-1.030) Urine Protein Negative (Negative) Urine Glucose (UA) Negative (Negative) Urine Ketones 1+ H (Negative) Urine Blood Negative (Negative) Urine Nitrite Negative (Negative) Urine Bilirubin Negative (Negative) Urine Urobilinogen Negative (Negative) Ur Leukocyte Esterase Negative (Negative) Ur Random Sodium mmol/L Lyme Disease IgG Ab Negative (Negative) Lyme Disease IgM Ab Negative (Negative) SARS-CoV-2 (PCR) (Negative) Influenza Type A (PCR) (Neg) Influenza Type B (PCR) (Neg) RSV (RT-PCR) (Neg) 03/30/22 03/30/22 03/30/22 Range/Units 13:10 13:10 13:10 WBC (4.8-10.8) K/ul RBC (4.70-6.10) M/uL Hgb (14.0-18.0) g/dl Hct (42.0-52.0) % MCV (80.0-100.0) fL MCH (25.0-34.0) pg MCHC (32.0-36.0) g/dL RDW Std Deviation (36.4-46.3) fL RDW Coeff of Joshua (11.5-14.5) % Plt Count (130-400) K/uL MPV (9.4-12.4) fL Immature Gran % (Auto) % Neut % (Auto) % Lymph % (Auto) % Howard % (Auto) % Eos % (Auto) % Baso % (Auto) % Neut # (Auto) (1.40-6.50) K/uL Lymph # (Auto) (1.2-3.4) K/uL Howard # (Auto) (0.11-0.59) K/uL Eos # (Auto) (0-0.50) K/uL Baso # (Auto) (0-0.2) K/uL Immature Gran # (Auto) (0.01-0.20) K/uL PT 10.9 (9.0-12.0) Seconds INR 1.0 (0.9-1.1) APTT 36.8 H (21.0-31.0) Seconds PTT Ratio 1.3 Sodium (136-145) mmol/L Potassium (3.5-5.1) mmol/L Chloride (98-107) mmol/L Carbon Dioxide (21-32) mmol/L Anion Gap (3-11) BUN (6-23) mg/dl Creatinine (0.6-1.4) mg/dl Est Cr Clr Drug Dosing ml/min Est GFR ( Amer) ml/min Est GFR (Non-Af Amer) ml/min BUN/Creatinine Ratio (10-20) Glucose (70-99(Fasting)) mg/dl Osmolality (280-300) mOsm/kg Calcium (8.5-10.1) mg/dl Total Bilirubin (0.2-1.0) mg/dl AST (13-39) U/L ALT (7-52) U/L Alkaline Phosphatase (34-104) U/L Total Creatine Kinase (30-223) U/L Total Protein (6.0-8.3) gm/dl Albumin (3.4-5.0) gm/dl Globulin (2.5-4.0) gm/dl Albumin/Globulin Ratio (0.9-2) Triglycerides (0-150) mg/dl Lipase (11-82) U/L TSH 10.469 H (0.300-4.500) uIu/ml Free T4 0.74 (0.61-1.60) ng/dl Urine Color Urine Appearance (Clear) Urine pH (4.5-7.5) Ur Specific [place] (1.000-1.030) Urine Protein (Negative) Urine Glucose (UA) (Negative) Urine Ketones (Negative) Urine Blood (Negative) Urine Nitrite (Negative) Urine Bilirubin (Negative) Urine Urobilinogen (Negative) Ur Leukocyte Esterase (Negative) Ur Random Sodium 28 mmol/L Lyme Disease IgG Ab (Negative) Lyme Disease IgM Ab (Negative) SARS-CoV-2 (PCR) (Negative) Influenza Type A (PCR) (Neg) Influenza Type B (PCR) (Neg) RSV (RT-PCR) (Neg) Administered Medications Lactated Ringer's (Lr) 1,000 mls @ 200 mls/hr IV .Q5H BELÉN Stop: 03/31/22 05:28 Last Admin: 03/30/22 19:53 Dose: 200 mls/hr Documented By: ESTEE Discontinued Medications Sodium Chloride (Nss 1000ml) 1,000 mls @ 999 mls/hr IV .Q1H1M ONE Stop: 03/30/22 14:55 Last Infusion: 03/30/22 15:17 Dose: 0 mls/hr Documented By: Admin: 03/30/22 14:00 Dose: 999 mls/hr Documented By: FAIZAN Sodium Chloride (Nss 1000ml) 1,000 mls @ 999 mls/hr IV .Q1H1M ONE Stop: 03/30/22 17:29 Last Infusion: 03/30/22 19:33 Dose: 0 mls/hr Documented By: Admin: 03/30/22 17:02 Dose: 999 mls/hr Documented By: OBIE Imaging Data Radiologist's Impression: Abdomen/Pelvis CT 03/30/22 13:55 CT SCAN OF THE ABDOMEN AND PELVIS WITHOUT IV CONTRAST CLINICAL HISTORY: Right flank pain. COMPARISON STUDY: No priors. TECHNIQUE: CT scan of the abdomen and pelvis is performed from the lung bases to the proximal femora. Images are reviewed in the axial, sagittal, and coronal planes. IV contrast was not administered for this examination. A dose lowering technique was utilized adhering to the principles of ALARA. CT DOSE: 1059.69 mGy.cm FINDINGS: Lung bases: The heart is mildly enlarged and without pericardial effusion. A calcified granuloma is seen in the right middle lobe. The lung bases are otherwise clear noting bibasilar scarring/atelectasis. There is a small hiatal hernia. Liver: The unenhanced liver is normal in size, contour, and attenuation. There is no intrahepatic biliary ductal dilatation. Gallbladder: The gallbladder is mildly distended but otherwise normal in apoorva earance. Spleen: Normal in size and attenuation. Pancreas: The pancreas appears mildly edematous and there is peripancreatic inflammation and trace fluid. The appearance is typical for acute pancreatitis. Scattered parenchymal calcifications suggest this may be acute on chronic. There is no evidence of organized peripancreatic fluid collection. Adrenal glands: Unremarkable. Kidneys: The unenhanced kidneys are normal in size and without hydronephrosis. There are no renal calculi identified. There is no evidence of contour deforming renal mass lesion. Abdominal vasculature: The abdominal aorta is normal in course and caliber noting moderate atherosclerotic calcification. Bowel: There is moderate colonic diverticulosis without CT evidence of acute diverticulitis. No bowel obstruction is seen. The appendix is well-visualized and normal. Small duodenal diverticula are noted. Peritoneum: There is trace perihepatic ascites. No intraperitoneal free air is seen. There is a small fat-containing umbilical hernia. Lymphadenopathy: Prominent upper abdominal nodes are likely reactive. Pelvic viscera: Evaluation of the pelvis is degraded by streak artifact from a right hip arthroplasty. The prostate gland is mildly enlarged and heterogeneous. The bladder wall appears thickened/trabeculated indicating chronic outlet obstruction. There are small bilateral fat-containing inguinal hernias. Skeletal structures: The skeletal structures are osteopenic. There is moderate to advanced lumbosacral spondylosis as well as mild scoliosis. A 14 mm bone island is noted in the right sacrum. No lytic or blastic lesions are seen. A right hip arthroplasty is in place. Soft tissues: There are mildly enlarged and asymmetric lymph nodes seen in the left anterior chest wall/infraaxillary region. These measure up to 2.0 cm in length as seen on image #29. IMPRESSION: 1. Findings are consistent with acute on chronic pancreatitis. Correlate with clinical and laboratory findings. 2. There is no evidence of organized peripancreatic fluid collection on this unenhanced examination. 3. Trace perihepatic ascites. 4. There are mildly enlarged and asymmetric lymph nodes identified in the left anterior chest wall/infraaxillary region. These are pathologically indeterminate. Correlate with the patient's oncological history. Further workup may be indicated. [address] evidence of acute diverticular. 6. Additional findings as above. ACT 112: Negative or not required by law. Electronically signed by: Sterling Lopez M.D. 03/30/2022 2:48 PM Chest X-Ray 03/30/22 13:56 XR chest 1V portable HISTORY: Chest pain, nonspecific COMPARISON: Chest 01/13/2019. FINDINGS: No pneumothorax. No pleural effusions. There are low lung volumes. The cardiac silhouette is mildly enlarged. There is mild central pulmonary vascular congestion without overt edema. No new focal lung consolidations to suggest a pneumonia. There is a right shoulder prosthesis. Advanced degenerative changes within the left shoulder. A few bibasilar linear densities which favor subsegmental atelectasis. IMPRESSION: Cardiomegaly with mild congestive change. ACT 112: Negative or not required by law. Electronically signed by: Adolfo Ramirez M.D. 03/30/2022 2:15 PM Liver Ultrasound 03/30/22 16:30 US liver CLINICAL HISTORY: acute pancreatitis ?CBD dilatation COMPARISON STUDY: CT of the abdomen and pelvis performed earlier today. FINDINGS: No hepatic lesions are identified. There is no biliary ductal dilatati on. The common bile duct measures 4 mm in caliber. The gallbladder is moderately distended. There are no gallstones. No gallbladder wall thickening or pericholecystic fluid is present. There is no sonographic Tripathi sign. Pancreas is obscured by overlying bowel gas. There is no right hydronephrosis. IMPRESSION: 1. No gallstones or biliary ductal dilatation. 2. Distended gallbladder. No sonographic evidence for acute cholecystitis. 3. Obscured pancreas. ACT 112: Negative or not required by law. Electronically signed by: David Wilson M.D. 03/30/2022 6:22 PM Discharge Plan Visit Data Chief Complaint: Abdominal Pain Stated Complaint: POSSIBLE APPENDICITIS ED Provider: Chano Llanos Discharge Problem: Acute pancreatitis, Acute hyponatremia Patient Disposition: Admitted As Inpatient Discharge Instructions Interventions: ED Discharge Assessment Last Done: 03/30/22 19:29 : Acute pancreatitis Qualifiers: Pancreatitis type: unspecified pancreatitis type Acute pancreatitis complication: unspecified Qualified Code(s): K85.90 - Acute pancreatitis without necrosis or infection, unspecified
--- NOTE | 2022-03-30 14:17 | XRay Report ---
XR chest 1V portable HISTORY: Chest pain, nonspecific COMPARISON: Chest 01/13/2019. FINDINGS: No pneumothorax. No pleural effusions. There are low lung volumes. The cardiac silhouette i s mildly enlarged. There is mild central pulmonary vascular congestion without overt edema. No new fo bong lung consolidations to suggest a pneumonia. There is a right shoulder prosthesis. Advanced degene rative changes within the left shoulder. A few bibasilar linear densities which favor subsegmental at electasis. IMPRESSION: Cardiomegaly with mild congestive change. ACT 112: Negative or not required by law. Electronically signed by: Adolfo Ramirez M.D. 03/30/2022 2:15 PM
[2022-03-30 14:25] LABS: Influenza A virus by PCR Negative (Neg); Influenza B virus by PCR Negative (Neg); RSV by PCR Negative (Neg); SARS CoV2 RNA(COVID-19) Ceph NEGATIVE (Negative)
--- NOTE | 2022-03-30 14:50 | CT Scan Report ---
CT SCAN OF THE ABDOMEN AND PELVIS WITHOUT IV CONTRAST CLINICAL HISTORY: Right flank pain. COMPARISON STUDY: No priors. TECHNIQUE: CT scan of the abdomen and pelvis is performed from the lung bases to the proximal femora. Images are reviewed in the axial, sagittal, and coronal planes. IV contrast was not administered for this examination. A dose lowering technique was utilized adhering to the principles of ALARA. CT DOSE: 1059.69 mGy.cm FINDINGS: Lung bases: The heart is mildly enlarged and without pericardial effusion. A calcified granuloma is s een in the right middle lobe. The lung bases are otherwise clear noting bibasilar scarring/atelectasi s. There is a small hiatal hernia. Liver: The unenhanced liver is normal in size, contour, and attenuation. There is no intrahepatic kenn iary ductal dilatation. Gallbladder: The gallbladder is mildly distended but otherwise normal in appearance. Spleen: Normal in size and attenuation. Pancreas: The pancreas appears mildly edematous and there is peripancreatic inflammation and trace fl uid. The appearance is typical for acute pancreatitis. Scattered parenchymal calcifications suggest t his may be acute on chronic. There is no evidence of organized peripancreatic fluid collection. Adrenal glands: Unremarkable. Kidneys: The unenhanced kidneys are normal in size and without hydronephrosis. There are no renal bong culi identified. There is no evidence of contour deforming renal mass lesion. Abdominal vasculature: The abdominal aorta is normal in course and caliber noting moderate atheroscle rotic calcification. Bowel: There is moderate colonic diverticulosis without CT evidence of acute diverticulitis. No bowel obstruction is seen. The appendix is well-visualized and normal. Small duodenal diverticula are not ed. Peritoneum: There is trace perihepatic ascites. No intraperitoneal free air is seen. There is a small fat-containing umbilical hernia. Lymphadenopathy: Prominent upper abdominal nodes are likely reactive. Pelvic viscera: Evaluation of the pelvis is degraded by streak artifact from a right hip arthroplasty . The prostate gland is mildly enlarged and heterogeneous. The bladder wall appears thickened/trabecu lated indicating chronic outlet obstruction. There are small bilateral fat-containing inguinal hernia s. Skeletal structures: The skeletal structures are osteopenic. There is moderate to advanced lumbosacra l spondylosis as well as mild scoliosis. A 14 mm bone island is noted in the right sacrum. No lytic o r blastic lesions are seen. A right hip arthroplasty is in place. Soft tissues: There are mildly enlarged and asymmetric lymph nodes seen in the left anterior chest wa ll/infraaxillary region. These measure up to 2.0 cm in length as seen on image #29. IMPRESSION: 1. Findings are consistent with acute on chronic pancreatitis. Correlate with clinical and laboratory findings. 2. There is no evidence of organized peripancreatic fluid collection on this unenhanced examination. 3. Trace perihepatic ascites. 4. There are mildly enlarged and asymmetric lymph nodes identified in the left anterior chest wall/in fraaxillary region. These are pathologically indeterminate. Correlate with the patient's oncological history. Further workup may be indicated. [address] evidence of acute diverticular. 6. Additional findings as above. ACT 112: Negative or not required by law. Electronically signed by: Sterling Lopez M.D. 03/30/2022 2:48 PM
[2022-03-30 15:04] LABS: Lyme Ab IgG w/WB Rflx Negative (Negative); Lyme Ab IgM w/WB Rflx Negative (Negative)
--- NOTE | 2022-03-30 16:23 | History & Physical Report ---
Date of Service March 30, 2022 Assessment & Plan (1) Acute pancreatitis: Plan: Although he came in with right lower quadrant pain he has epigastric pain on examination consistent with his CT scan with inflammation of his pancreas Lipase is normal which suggest more of an acute on chronic process (also noted on CT) therefore possibly due to Keytruda Cortisol and TSH will also be taken as more common side effects of Keytruda CT was negative for CBD dilatation and LFTs normal however to completely investigate we will get ultrasound of his right upper quadrant to assess for CBD dilatation. If LFTs increasing recommend MRCP Triglycerides within normal limits No significant alcohol history 2 L normal saline bolus given in ER. Continue IV fluids with lactated Ringer's at 200 mL/h - careful monitoring of respiratory status on this due to mild congestive change noted on chest x-ray and mild perihepatic ascites noted on CT. Consult gastroenterology for consideration of EUS due to chronic pancreatitis findings although most likely this will be done as an outpatient (2) Acute hyponatremia: Plan: Suspect due to GI loss from pancreatitis. Suspect will increase with normal saline bolus, will check sodium level following this (3) Melanoma: Plan: With no known metastatic spread. Possible concerning lymph nodes noted on CT discussed with the patient and recommended close follow-up with his oncologist on discharge. (4) Hypothyroidism: Plan: Notably this can also be affected by Keytruda TSH Continue levothyroxine 100 mcg p.o. daily Plan VTE prophylaxis - Lovenox 40 mg SQ daily Diet - n.p.o. 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 His reports he is generally more fatigued the last 2 weeks. Experience severe generalized muscle pain on Saturday night, severity 8/10. He took ibuprofen for this and it improved the following morning. However he was left with right lower quadrant abdominal pain which has persisted to today. Associated decrease in appetite and he has not eaten for 2 days. Current severity 4-5/10. Associated nausea. No vomiting, constipation, diarrhea, melena or bright red blood in stool. He drinks 3-4 beers a year. No prior history of pancreatitis. He has been on Keytruda for multiple melanoma since July 12, 2021. He reports increased fatigue and sore joints on Keytruda but has otherwise tolerated it well. He is next scheduled for Keytruda on Saturday this coming week. In the ER his pain examined to be more epigastric than right lower quadrant. CT showed findings consistent with acute on chronic pancreatitis. Lipase was within normal limits. Allergies Allergy/AdvReac Type Severity Reaction Status Date / Time Sulfa (Sulfonamide Allergy Hives Verified 02/06/19 06:40 Antibiotics) Home Medications Medication Instructions Recorded Confirmed Type ibuprofen 200 mg tablet (Advil) 200 mg PO Q6H PRN Pain 01/01/19 03/30/22 History vit C 250 mg-vit E 90 mg-zinc 40 1 tab PO DAILY 01/01/19 03/30/22 History mg-copper 1 [id number]-[id number] capsule (PreserVision AREDS-2) levothyroxine 100 mcg tablet 100 mcg PO DAILY 03/30/22 03/30/22 History Past Med/Surg History Medical History (Updated 03/30/22 @ 17:07 by Musa Falk MD) Diverticular disease [place] (hard of hearing) Hypothyroidism Melanoma Diagnosed Feb 2021 - [facility] - not known to be metastatic. Last PET Jan 2022. 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 (~01/2019) Family History Father Colon cancer Social History Smoking Status: Light tobacco smoker Second Hand Exposure: No; Hx Alcohol Use: Yes Alcohol type: beer Hx Substance Use: No Preferred Language: Romanian Communication Ability: Effective Loading And Unloading Supervisor Required: No Beliefs That Will Affect Care: None marital status: Current Living Situation: Spouse Feels Safe at Home: Yes Assistive Devices: Glasses Review of Systems Review of Systems: All systems reviewed & are unremarkable except as noted in HPI & below Physical Exam Constitutional: WD/WN, vitals as above Eyes: + anicteric sclerae; normal pupil size Respiratory: normal respiratory effort, lungs clear to auscultation Cardiovascular: Rate/Rhythm: regular rate and regular rhythm Heart Sounds: + murmur (LUSB 2/6 JESIS) Extremities: normal capillary refill; no calf tenderness and no pedal edema Gastrointestinal (Abdomen): Inspection/Auscultation: abdomen normal to inspection; abdomen not distended Percussion/Palpation: + abdomen tender (Epigastric, no right lower quadrant tenderness) and abdomen soft; no guarding and abdomen not rigid Musculoskeletal: no cyanosis or clubbing, extremities motor strength 5/5 Skin: no rashes, warm and dry Neurologic: moves all extremities and awake; not confused Psychiatric: A+Ox3, euthymic affect Results & Data Results & Data ([facility]) Vital Signs (Past 12 Hours) Vital Signs Temp Pulse Pulse Resp BP BP Pulse Ox 03/30/22 15:00 76 4 L 97 03/30/22 15:00 99/57 L 03/30/22 14:30 78 16 98 03/30/22 14:30 121/77 03/30/22 14:00 84 19 99 03/30/22 14:00 106/60 03/30/22 13:40 85 20 132/71 97 03/30/22 12:24 36.8 C 84 20 114/71 96 O2 Del Method 03/30/22 15:00 03/30/22 15:00 03/30/22 14:30 03/30/22 14:30 03/30/22 14:00 03/30/22 14:00 03/30/22 13:40 Room Air 03/30/22 12:24 Room Air Laboratory Results Abnormal lab results 03/30/22 03/30/22 03/30/22 Range/Units 13:10 13:10 13:10 RBC 4.51 L (4.70-6.10) M/uL Hgb 13.9 L (14.0-18.0) g/dl Hct 39.8 L (42.0-52.0) % [place] # (Auto) 0.95 H (0.11-0.59) K/uL Sodium 126 L (136-145) mmol/L Chloride 93 L (98-107) mmol/L Glucose 172 H (70-99(Fasting)) mg/dl Osmolality (280-300) mOsm/kg Total Bilirubin 1.2 H (0.2-1.0) mg/dl TSH (0.300-4.500) uIu/ml Urine Ketones 1+ H (Negative) 03/30/22 03/30/22 Range/Units 13:10 13:10 RBC (4.70-6.10) M/uL Hgb (14.0-18.0) g/dl Hct (42.0-52.0) % [place] # (Auto) (0.11-0.59) K/uL Sodium (136-145) mmol/L Chloride (98-107) mmol/L Glucose (70-99(Fasting)) mg/dl Osmolality 270 L (280-300) mOsm/kg Total Bilirubin (0.2-1.0) mg/dl TSH 10.469 H (0.300-4.500) uIu/ml Urine Ketones (Negative) Diagnostic Findings XR chest 1V portable HISTORY: Chest pain, nonspecific COMPARISON: Chest 01/13/2019. FINDINGS: No pneumothorax. No pleural effusions. There are low lung volumes. The cardiac silhouette is mildly enlarged. There is mild central pulmonary vascular congestion without overt edema. No new focal lung consolidations to suggest a pneumonia. There is a right shoulder prosthesis. Advanced degenerative changes within the left shoulder. A few bibasilar linear densities which favor subsegmental atelectasis. IMPRESSION: Cardiomegaly with mild congestive change. CT SCAN OF THE ABDOMEN AND PELVIS WITHOUT IV CONTRAST CLINICAL HISTORY: Right flank pain. COMPARISON STUDY: No priors. TECHNIQUE: CT scan of the abdomen and pelvis is performed from the lung bases to the proximal femora. Images are reviewed in the axial, sagittal, and coronal planes. IV contrast was not administered for this examination. A dose lowering technique was utilized adhering to the principles of ALARA. CT DOSE: 1059.69 mGy.cm FINDINGS: Lung bases: The heart is mildly enlarged and without pericardial effusion. A calcified granuloma is seen in the right middle lobe. The lung bases are otherwise clear noting bibasilar scarring/atelectasis. There is a small hiatal hernia. Liver: The unenhanced liver is normal in size, contour, and attenuation. There is no intrahepatic biliary ductal dilatation. Gallbladder: The gallbladder is mildly distended but otherwise normal in appearance. Spleen: Normal in size and attenuation. Pancreas: The pancreas appears mildly edematous and there is peripancreatic inflammation and trace fluid. The appearance is typical for acute pancreatitis. Scattered parenchymal calcifications suggest this may be acute on chronic. There is no evidence of organized peripancreatic fluid collection. Adrenal glands: Unremarkable. Kidneys: The unenhanced kidneys are normal in size and without hydronephrosis. There are no renal calculi identified. There is no evidence of contour deforming renal mass lesion. Abdominal vasculature: The abdominal aorta is normal in course and caliber noting moderate atherosclerotic calcification. Bowel: There is moderate colonic diverticulosis without CT evidence of acute diverticulitis. No bowel obstruction is seen. The appendix is well-visualized and normal. Small duodenal diverticula are noted. Peritoneum: There is trace perihepatic ascites. No intraperitoneal free air is seen. There is a small fat-containing umbilical hernia. Lymphadenopathy: Prominent upper abdominal nodes are likely reactive. Pelvic viscera: Evaluation of the pelvis is degraded by streak artifact from a right hip arthroplasty. The prostate gland is mildly enlarged and heterogeneous. The bladder wall appears thickened/trabeculated indicating chronic outlet obstruction. There are small bilateral fat-containing inguinal hernias. Skeletal structures: The skeletal structures are osteopenic. There is moderate to advanced lumbosacral spondylosis as well as mild scoliosis. A 14 mm bone island is noted in the right sacrum. No lytic or blastic lesions are seen. A right hip arthroplasty is in place. Soft tissues: There are mildly enlarged and asymmetric lymph nodes seen in the left anterior chest wall/infraaxillary region. These measure up to 2.0 cm in length as seen on image #29. IMPRESSION: 1. Findings are consistent with acute on chronic pancreatitis. Correlate with clinical and laboratory findings. 2. There is no evidence of organized peripancreatic fluid collection on this unenhanced examination. 3. Trace perihepatic ascites. 4. There are mildly enlarged and asymmetric lymph nodes identified in the left anterior chest wall/infraaxillary region. These are pathologically indeterminate. Correlate with the patient's oncological history. Further workup may be indicated. [address] evidence of acute diverticular. 6. Additional findings as above. Medications Administered ER medications given: Normal saline 1 L bolus ECG Indication: abdominal pain Rate (beats per minute): 77 Rhythm: normal sinus Findings: no acute ischemic change Comparison ECG Date: from (January 13, 2019) Change: no significant change Code Status & VTE Plan Code Status Full VTE Prophylaxis Plan VTE Prophylaxis will be ordered: Yes PG Care Time/CCT Total # of Minutes Spent Total Time Spent with Patient: Total time spent is greater than 50% in coordination of care (as documented) at patient's floor/unit and/or counseling patient: Coding Level of Care Code 78558 INT INP/OBS CARE 375MIN Diagnoses Acute pancreatitis K85.90 Acute pancreatitis complication: unspecified Pancreatitis type: unspecified pancreatitis type Acute hyponatremia E87.1 Melanoma C43.9 Hypothyroidism E03.9 (1) Acute pancreatitis Acute pancreatitis complication: unspecified Pancreatitis type: unspecified p ancreatitis type Qualified Code(s): K85.90 - Acute pancreatitis without necrosis or infection, unspecified
[2022-03-30 16:35] LABS: Thyroid Stimulating Hormone 10.469 uIu/ml (0.300-4.500)
[2022-03-30 17:37] LABS: Partial Thromboplastin Ratio 1.3; Partial Thromboplastin Time 36.8 Seconds (21.0-31.0); Prothrombin Time 10.9 Seconds (9.0-12.0)
--- NOTE | 2022-03-30 18:23 | Ultrasound Report ---
US liver CLINICAL HISTORY: acute pancreatitis ?CBD dilatation COMPARISON STUDY: CT of the abdomen and pelvis performed earlier today. FINDINGS: No hepatic lesions are identified. There is no biliary ductal dilatation. The common bile d uct measures 4 mm in caliber. The gallbladder is moderately distended. There are no gallstones. No ga llbladder wall thickening or pericholecystic fluid is present. There is no sonographic Tripathi sign. P ancreas is obscured by overlying bowel gas. There is no right hydronephrosis. IMPRESSION: 1. No gallstones or biliary ductal dilatation. 2. Distended gallbladder. No sonographic evidence for acute cholecystitis. 3. Obscured pancreas. ACT 112: Negative or not required by law. Electronically signed by: David Wilson M.D. 03/30/2022 6:22 PM
[2022-03-30 18:28] LABS: T4 Free Thyroxine 0.74 ng/dl (0.61-1.60)
[2022-03-30] MEDS: LACTATED RINGER'S 1,000 ML IV SCH (19:53)
[2022-03-30] MEDS ORDERED: ACETAMINOPHEN 1,000 MG/100 ML VIAL IV PRN (20:51)
[2022-03-30] MEDS ORDERED: ONDANSETRON INJ 2 MG/ML 2 ML VIAL IV PRN (20:52)
[2022-03-30] MEDS ORDERED: HYDROmorphone INJ 0.5 MG/0.5 ML SYR IV PRN ×2 (20:52)
[2022-03-30] MEDS: ENOXAPARIN INJ 40 MG/0.4 ML SYR SQ SCH (22:00)
[2022-03-31] MEDS: LACTATED RINGER'S 1,000 ML IV SCH (01:31)
[2022-03-31] MEDS: LEVOTHYROXINE SODIUM 100 MCG TABLET PO SCH (06:04)
[2022-03-31 07:25] LABS: Basophils # (auto) 0.04 K/uL (0-0.2); Basophils % (auto) 0.6 %; Eosinophils # (auto) 0.16 K/uL (0-0.50); Eosinophils % (auto) 2.5 %; Hematocrit (blood only) 39.1 % (42.0-52.0); Hemoglobin 13.1 g/dl (14.0-18.0); Immature Granulocytes # (auto) 0.02 K/uL (0.01-0.20); Immature Granulocytes % (auto) 0.3 %; Lymphocytes # (auto) 1.27 K/uL (1.2-3.4); Lymphocytes % (auto) 19.4 %; Mean Corpuscular Hemoglobin 30.2 pg (25.0-34.0); Mean Corpuscular Hgb Conc 33.5 g/dL (32.0-36.0); Mean Corpuscular Volume 90.1 fL (80.0-100.0); Mean Platelet Volume 9.6 fL (9.4-12.4); Monocytes # (auto) 0.96 K/uL (0.11-0.59); Monocytes % (auto) 14.7 %; Neutrophils # (auto) 4.08 K/uL (1.40-6.50); Neutrophils % (auto) 62.5 %; Platelet Count 287 K/uL (130-400); RDW Standard Deviation 43.1 fL (36.4-46.3); Red Blood Count 4.34 M/uL (4.70-6.10); White Blood Count 6.53 K/ul (4.8-10.8)
--- NOTE | 2022-03-31 07:49 | Gastrointestinal Consultation ---
Date of Consultation March 31, 2022 Assessment & Plan (1) Acute pancreatitis: Acute pancreatitis likely from Keytruda. This will often give you a atypical type presentation. Assessment chronic changes that are likely significant at this time, I would continue with characteristic pancreatitis treatments with IV fluids, pain control, pain is controlled he can start a low-fat liquid only diet and then advance as tolerated. Not unreasonable to obtain an outpatient EUS in 4 to 6 weeks time after resolution of the symptoms. We will need to discuss with oncology if they feel that Keytruda should be continued. There is no evidence of colitis or other proximal GI disease which can happen with these types of immunotherapy medications. No role for acute procedure at this time, continue supportive care call with questions Of note would closely monitor IV fluids resuscitation given his hyponatremia, Isotonic fluids with lactated Ringer's would be the drug of choice, I would follow his hematocrit to ensure that it declines carefully given his hyponatremia. History of Present Illness Reason for Consultation: Concern for pancreatitis Attending Physician: Fabiano Hernandez History of Present Illness Covering gentleman with a history of for Dr. Smith today I was asked to see this gentleman who is a 76-year-old melanoma on Keytruda who has had 13 treatments and presents with the acute onset of right upper and right lower quadrant abdominal pain. This came on insidiously and is described as a sharp pain that is worse with lying down and moving around, mild worsening with eating, no evidence of vomiting but does have an associated nausea with it He does note general fatigue over the last 2 weeks, no evidence of recent alcohol usage. On his evaluation he was noted to have normal LFTs as well as normal lipase, however he had surrounding edema and peripancreatic inflammation likely consistent with pancreatitis no complications fluid collections or other concerns. He has had no change in bowel habits to be concerned of peptic ulcer disease he states that his pain is controlled with analgesics. There is some concern chronic pancreatitis with reticulocyte stones noted in the pancreatic parenchyma without any obstructive features. Laboratory studies showed a normal white count, hematocrit of 39, sodium was 126 on presentation. TSH was 10.4. Ultrasound failed to show any evidence of gallstones, biliary ductal dilatation, or cholecystitis. Allergies Allergy/AdvReac Type Severity Reaction Status Date / Time Sulfa (Sulfonamide Allergy Hives Verified 02/06/19 06:40 Antibiotics) Home Medications Medication Instructions Recorded Confirmed Type ibuprofen 200 mg tablet (Advil) 200 mg PO Q6H PRN Pain 01/01/19 03/30/22 History vit C 250 mg-vit E 90 mg-zinc 40 1 tab PO DAILY 01/01/19 03/30/22 History mg-copper 1 [id number] capsule (PreserVision AREDS-2) levothyroxine 100 mcg tablet 100 mcg PO DAILY 03/30/22 03/30/22 History Patient History Medical History Diverticular disease [place] (hard of hearing) Hypothyroidism Melanoma Diagnosed Feb 2021 - [facility] - not known to be metastatic. Last PET Jan 2022. 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 (~01/2019) Family History Father Colon cancer Social History Smoking Status: Never smoker Second Hand Exposure: No; Hx Alcohol Use: Yes Alcohol type: beer Hx Substance Use: No Preferred Language: Somali Communication Ability: Effective Hvac Field Service Technician Required: No Beliefs That Will Affect Care: None marital status: Current Living Situation: Spouse Feels Safe at Home: Yes Safety Concerns: Feels Safe At This Time Assistive Devices: Glasses Review of Systems Review of Systems: 10 system review negative except for stated as above Physical Exam Physical Exam: Awake alert oriented x3 Heart regular Lungs are clear Abdomen is soft nontender hypoactive bowel sounds No peripheral edema Easily sits up in bed She is Results & Data ([facility]) Vital Signs (Past 12 Hours) Vital Signs Temp Pulse Resp BP Pulse Ox O2 Del Method 03/31/22 07:09 37.3 C 81 16 104/64 96 Room Air 03/30/22 20:00 36.6 C 83 18 149/54 H 97 Room Air (1) Acute pancreatitis Acute pancreatitis complication: unspecified Pancreatitis type: unspecified pancreatitis type Qualified Code(s): K85.90 - Acute pancreatitis without necrosis or infection, unspecified
[2022-03-31 08:02] LABS: Albumin Globulin Ratio 1.2 (0.9-2); Albumin Level 3.4 gm/dl (3.4-5.0); BUN Creatinine Ratio 9.1 (10-20); Bilirubin,Total 0.9 mg/dl (0.2-1.0); Calcium 8.7 mg/dl (8.5-10.1); Creatinine Clr Calc Pharmacy 118.8 ml/min; Est GFR (African American) 110.4 ml/min; Est GFR (Non-African American) 95.2 ml/min; Globulin 2.8 gm/dl (2.5-4.0); Potassium 4.3 mmol/L (3.5-5.1); Total Protein 6.2 gm/dl (6.0-8.3)
--- NOTE | 2022-03-31 08:34 | Hospitalist Progress Note ---
Date of Service March 31, 2022 Assessment & Plan (1) Acute pancreatitis: Plan: Although he came in with right lower quadrant pain he has epigastric pain on examination consistent with his CT scan with inflammation of his pancreas Lipase is normal which suggest more of an acute on chronic process (also noted on CT with scattered parenchymal calcifications suggest this may be acute on chronic) therefore possibly due to Keytruda Cortisol and TSH will also be taken as more common side effects of Keytruda Per patient he has been on Synthroid now for several months to 1 year and they are titrating this. CT was negative for CBD dilatation and LFTs normal however to completely investigate we will get ultrasound of his right upper quadrant to assess for CBD dilatation. U/S revealed no gall stones and CBD measured at 4mm If LFTs increasing recommend MRCP Triglycerides within normal limits GI consulted and recommended supportive care with IVFs and pain control and once pain was controlled could start clears and eventually increase to a low fat diet. Patient states his pain has improved from a 7-9/10 to a 1-3 /10 Will start clear liquid diet and if tolerates, possibly increase to low fat diet tomorrow AM GI also recommended a EUS in 4-6 weeks to further evaluate the pancreas. Will check IgG4 to rule out autoimmune pancreatitis I called Patient's oncology clinic in [facility] regarding the Keytruda. They are not open until Saturday. Advised patient and his if they are still here Saturday I jerman call back otherwise they should call the [facility] clinic Saturday. Patient is tolerating clear liquids this afternoon Changed IV Tylenol to po Continue IV Dilaudid for pain >6 (2) Acute hyponatremia: Plan: Suspect due to GI loss from pancreatitis. Suspect will increase with normal saline bolus, will check sodium level following this (3) Melanoma: Plan: With no known metastatic spread. Possible concerning lymph nodes noted on CT discussed with the patient and recommended close follow-up with his oncologist on discharge. (4) Hypothyroidism: Plan: Notably this can also be affected by Keytruda TSH elevated at 10.4 (per was much higher and PCP has been titrating the Levothyroxine) Continue levothyroxine 100 mcg p.o. daily for now Plan VTE prophylaxis - Lovenox 40 mg SQ daily Diet - clear liquids Disposition -admit to [facility] Admission and Anticipated Discharge Date Admission Date: March 30, 2022 Subjective Patient is awake sitting up in bed. His is at the bedside. Patient states his abdominal pain has improved with the IVFs. His pain was a 7-9/10 and currently is 1-3. He states he is slightly hungry and would like to try and eat something. He denies any nausea, vomiting, chest pain, SOB or dyspnea. He denies ever having pancreatitis in the past. He states he has ETOH a few times per year and his last intake was in December. It appears his wfe may disagree wth this and rolled her eyes. I will try and talk to her via the phone later today or tomorrow. He states he used to drink more and "would drink too much" but not as much as his . Patient has been on Synthroid now for about the past year. And his doctor is titrating the dose. He is 2/[address] through his Keytruda and states he has a treatment next week. Review of Systems Review of Systems: + ROS as above all other ROS negative Physical Exam Constitutional: WD/WN, vitals as above Neck: trachea midline, no thyromegaly Respiratory: normal respiratory effort, lungs clear to auscultation Cardiovascular: Rate/Rhythm: regular rate and regular rhythm Heart Sounds: normal S1, normal S2 and + murmur Extremities: normal capillary refill; no calf tenderness and no edema 2/6 JESSI Gastrointestinal (Abdomen): Inspection/Auscultation: abdomen normal to inspection, + abdomen distended and normal bowel sounds Percussion/Palpation: abdomen soft abdomen distended but soft and patient states abdomen is normally this size, no R/R/G Mild tender to palpation RUQ Skin: scar posterior head from melanoma resection Psychiatric: A+Ox3, euthymic affect Results & Data Results & Data ([facility]) Vital Signs (Past 12 Hours) Vital Signs Temp Pulse Resp BP Pulse Ox O2 Del Method 03/31/22 07:09 37.3 C 81 16 104/64 96 Room Air Laboratory Results Abnormal lab results 03/30/22 03/30/22 03/30/22 Range/Units 13:10 13:10 13:10 RBC (4.70-6.10) M/uL Hgb (14.0-18.0) g/dl Hct (42.0-52.0) % [place] # (Auto) (0.11-0.59) K/uL APTT 36.8 H (21.0-31.0) Seconds Sodium (136-145) mmol/L BUN/Creatinine Ratio (10-20) Glucose (70-99(Fasting)) mg/dl Osmolality 270 L (280-300) mOsm/kg TSH 10.469 H (0.300-4.500) uIu/ml Urine Osmolality (500-800) mOsm/kg 03/30/22 03/30/22 03/31/22 Range/Units 21:13 Unknown 06:31 RBC 4.34 L (4.70-6.10) M/uL Hgb 13.1 L (14.0-18.0) g/dl Hct 39.1 L (42.0-52.0) % [place] # (Auto) 0.96 H (0.11-0.59) K/uL APTT (21.0-31.0) Seconds Sodium 131 L (136-145) mmol/L BUN/Creatinine Ratio (10-20) Glucose (70-99(Fasting)) mg/dl Osmolality (280-300) mOsm/kg TSH (0.300-4.500) uIu/ml Urine Osmolality 380 L (500-800) mOsm/kg 03/31/22 Range/Units 06:31 RBC (4.70-6.10) M/uL Hgb (14.0-18.0) g/dl Hct (42.0-52.0) % [place] # (Auto) (0.11-0.59) K/uL APTT (21.0-31.0) Seconds Sodium 133 L (136-145) mmol/L BUN/Creatinine Ratio 9.1 L (10-20) Glucose 118 H (70-99(Fasting)) mg/dl Osmolality (280-300) mOsm/kg TSH (0.300-4.500) uIu/ml Urine Osmolality (500-800) mOsm/kg PG Care Time/CCT Total # of Minutes Spent Total Time Spent with Patient: Total time spent is greater than 50% in coordination of care (as documented) at patient's floor/unit and/or counseling patient: Coding Level of Care Code 15893 SUB INP/OBS CARE 2/35MIN Diagnoses Acute pancreatitis K85.90 Acute pancreatitis complication: unspecified Pancreatitis type: unspecified pancreatitis type Acute hyponatremia E87.1 Melanoma C43.9 Hypothyroidism E03.9 (1) Acute pancreatitis Acute pancreatitis complication: unspecified Pancreatitis type: unspecified pancreatitis type Qualified Code(s): K85.90 - Acute pancreatitis without necrosis or infection, unspecified
[2022-03-31] MEDS ORDERED: HYDROmorphone INJ 0.5 MG/0.5 ML SYR IV PRN (14:55)
[2022-03-31] MEDS: ACETAMINOPHEN 325 MG TAB PO PRN ×2 (17:13→21:52)
[2022-03-31] MEDS: ENOXAPARIN INJ 40 MG/0.4 ML SYR SQ SCH (21:00)
[2022-04-01] MEDS: LEVOTHYROXINE SODIUM 100 MCG TABLET PO SCH (05:46)
[2022-04-01 07:35] LABS: Hematocrit (blood only) 37.3 % (42.0-52.0); Mean Corpuscular Hemoglobin 30.4 pg (25.0-34.0); Mean Corpuscular Hgb Conc 34.9 g/dL (32.0-36.0); Mean Corpuscular Volume 87.4 fL (80.0-100.0); Mean Platelet Volume 9.9 fL (9.4-12.4); Platelet Count 292 K/uL (130-400); RDW Coefficient of Variation 12.6 % (11.5-14.5); RDW Standard Deviation 40.5 fL (36.4-46.3); Red Blood Count 4.27 M/uL (4.70-6.10); White Blood Count 4.44 K/ul (4.8-10.8)
[2022-04-01 07:57] LABS: Albumin Level 3.8 gm/dl (3.4-5.0); BUN Creatinine Ratio 7.8 (10-20); Bilirubin Direct 0.2 mg/dl (0-0.2); Bilirubin,Total 1.2 mg/dl (0.2-1.0); Calcium 8.6 mg/dl (8.5-10.1); Creatinine Clr Calc Pharmacy 122.5 ml/min; Est GFR (African American) 111.8 ml/min; Est GFR (Non-African American) 96.5 ml/min; Total Protein 6.5 gm/dl (6.0-8.3)
--- NOTE | 2022-04-01 14:10 | Discharge Summary ---
Date of Service April 01, 2022 Admission HPI Per Admitting Provider Jeffy Coronado is a 76 year old male with multiple melanoma on Keytruda who presents to the ER with abdominal pain. His reports he is generally more fatigued the last 2 weeks. Experience severe generalized muscle pain on Saturday night, severity 8/10. He took ibuprofen for this and it improved the following morning. However he was left with right lower quadrant abdominal pain which has persisted to today. Associated decrease in appetite and he has not eaten for 2 days. Current severity 4-5/10. Associated nausea. No vomiting, constipation, diarrhea, melena or bright red blood in stool. He drinks 3-4 beers a year. No prior history of pancreatitis. He has been on Keytruda for multiple melanoma since July 12, 2021. He reports increased fatigue and sore joints on Keytruda but has otherwise tolerated it well. He is next scheduled for Keytruda on Saturday this coming week. In the ER his pain examined to be more epigastric than right lower quadrant. CT showed findings consistent with acute on chronic pancreatitis. Lipase was within normal limits. Admission Exam Per Admitting Provider Constitutional: WD/WN, vitals as above Eyes: + anicteric sclerae; normal pupil size Respiratory: normal respiratory effort, lungs clear to auscultation Cardiovascular: Rate/Rhythm: regular rate and regular rhythm Heart Sounds: + murmur (LUSB 2/6 JESSI) Extremities: normal capillary refill; no calf tenderness and no pedal edema Gastrointestinal (Abdomen): Inspection/Auscultation: abdomen normal to inspection; abdomen not distended Percussion/Palpation: + abdomen tender (Epigastric, no right lower quadrant tenderness) and abdomen soft; no guarding and abdomen not rigid Musculoskeletal: no cyanosis or clubbing, extremities motor strength 5/5 Skin: no rashes, warm and dry Neurologic: moves all extremities and awake; not confused Psychiatric: A+Ox3, euthymic affect Principal Diagnosis Acute pancreatitis Discharge Exam Constitutional WD/WN, vitals as above Neck trachea midline, no thyromegaly Respiratory normal respiratory effort, lungs clear to auscultation Cardiovascular Rate/Rhythm: regular rate and regular rhythm Heart Sounds: normal S1, normal S2 and + murmur Extremities: normal capillary refill; no calf tenderness and no edema Gastrointestinal (Abdomen) Inspection/Auscultation: abdomen normal to inspection, + abdomen distended and normal bowel sounds Percussion/Palpation: abdomen soft; abdomen nontender, no guarding, abdomen not rigid and no hepatosplenomegaly Psychiatric A+Ox3, euthymic affect Discharge Data Allergies Allergy/AdvReac Type Severity Reaction Status Date / Time Sulfa (Sulfonamide Allergy Hives Verified 02/06/19 06:40 Antibiotics) Consultations 03/30/22 15:39 ED Decision to Admit Stat 03/30/22 23:16 Consult Gastroenterology Routine Ordered Studies 03/30/22 13:55 CT abd pelvis wo con Stat 1. Findings are consistent with acute on chronic pancreatitis. Correlate with clinical and laboratory findings. 2. There is no evidence of organized peripancreatic fluid collection on this unenhanced examination. 3. Trace perihepatic ascites. 4. There are mildly enlarged and asymmetric lymph nodes identified in the left anterior chest wall/infraaxillary region. These are pathologically indeterminate. Correlate with the patient's oncological history. Further workup may be indicated. [address] Colonic [address] without CT evidence of acute diverticular. 6. Additional findings as above. 03/30/22 16:30 US liver Stat 1. No gallstones or biliary ductal dilatation. 2. Distended gallbladder. No sonographic evidence for acute cholecystitis. 3. Obscured pancreas Hospital Course (1) Acute pancreatitis: Although he came in with right lower quadrant pain he has epigastric pain on examination consistent with his CT scan with inflammation of his pancreas Lipase was normal which suggest more of an acute on chronic process (also noted on CT with scattered parenchymal calcifications - suggest this may be acute on chronic) therefore possibly due to Keytruda Cortisol and TSH will also be taken as more common side effects of Keytruda Per patient he has been on Synthroid now for several months to 1 year and they are titrating this. CT was negative for CBD dilatation and LFTs normal however to completely investigate we will get ultrasound of his right upper quadrant to assess for CBD dilatation. U/S revealed no gall stones and CBD measured at 4mm If LFTs increasing recommend MRCP Triglycerides within normal limits GI consulted and recommended supportive care with IVFs and pain control and once pain was controlled could start clears and eventually increase to a low fat diet. Patient states currently today he has no pain He tolerated clear liquids and today had a low fat diet He has only received Tylenol for the pain GI also recommended a EUS in 4-6 weeks to further evaluate the pancreas. Will check IgG4 to rule out autoimmune pancreatitis I called Patient's oncology clinic in [place] regarding the Keytruda. They are not open until Saturday. Advised patient and his to call the oncology clinic Saturday (2) Acute hyponatremia: Suspect due to GI loss from pancreatitis. Suspect will increase with normal saline bolus Recommend to follow up with primary care doctor for repeat labs (3) Melanoma: With no known metastatic spread. Possible concerning lymph nodes noted on CT discussed with the patient and recommended close follow-up with his oncologist on discharge. Per patient and his they have an appt in 3 days. (4) Hypothyroidism: Notably this can also be affected by Keytruda TSH elevated at 10.4 (per was much higher and PCP has been titrating the Levothyroxine) Also patient's states he did not take this medication for 2 days due to the abdominal pain Continue levothyroxine 100 mcg p.o. daily for now Plan Discharge patient to home today Follow up with oncology and pcp Total Time Total Time Spent Total Time Spent (In Minutes): 35 Discharge Plan Discharge Items Patient Disposition: Home - Self-Care Reason For Visit: ACUTE PANCREATITIS Discharge Diagnosis: pancreatitis Condition on Discharge: Good Activity: Resume your previous activity Weightbearing: Full weightbearing Non-emergency contact: Primary Care Provider, Photographic Equipment Mechanic and Oncologist Call non-emergency contact if: you have any medication questions, your symptoms worsen and you have a fever Follow-up/Referrals: Jeremy Suárez, [Primary Care Provider] - Diet: Low Fat Addtl Attending Provider Instructions: You were admitted with abdominal pain. On exam you had pain in the right upper abdomen and CT changes of pancreatitis. You had liver function tests that were normal but was also ordered a U/S of the liver to be thorough. Ultrasound revealed a normal liver and the common bile duct was normal in size with no evidence of any stones in the ducts or any cause for pancreatitis. GI specialist evaluated you and recommended for you to have a EUS in 4-6 weeks after the acute pancreatitis has resolved. You should also follow up with your oncology clinic (this week), your family practice doctor in 1-2 weeks. Pending Studies at Discharge: Yes Studies:: IgG4 to check for autoimmune pancreatitis Stand-Alone Forms: [employer] Medications and DC Order Prescriptions: Continued PreserVision AREDS-2 [id number] Capsule 1 tab PO DAILY levothyroxine 100 mcg tablet 100 mcg PO DAILY Discontinued ibuprofen [Advil] 200 mg Tablet 200 mg PO Q6H PRN (Reason: Pain) Discharge Orders: Discharge Order (Routine); Ordered 04/01/22 Ordered By: Allegra Moon/Other Patient Handouts: Low-Fat Cooking Tips, ED Diet, Low Fat, ED Pancreatitis Admission Data Admit Date/Time: 03/30/22 16:54 Attending Provider: Kvng Taylor Admit Provider: Musa Falk Primary Care Provider: Jeremy Suárez Other Providers: Musa Falk ; Tevin Ramesh Other Interventions: Discharge Summary Assessment (RN) Last Done: 04/01/22 14:03 Supervising Physician Co-Signing Physician Notes The patient was seen by me. is at the bedside. The chart was reviewed. Case discussed with JEAN PIERRE Palacios. Agree with assessment and plan. Home today, April 01 Coding Level of Care Code HOSP INP/OBS DISCH >30 MIN Diagnoses Acute pancreatitis K85.90 Acute pancreatitis complication: unspecified Pancreatitis type: unspecified pancreatitis type Acute hyponatremia E87.1 Melanoma C43.9 Hypothyroidism E03.9
== END 2022-04-01 15:23 | disposition home or self-care (01) | DRG 439 ==
LOC: ED 12:17 → EDINP 16:54 → SUATTDRO 16:54 → 3W 19:29

== ENCOUNTER 2022-04-09 11:25 | Inpatient (IN) ==
[2022-04-09] MEDS ORDERED: SODIUM CHLORIDE 0.9% 1000ML 1,000 ML IV SCH ×2 (12:15→13:00)
[2022-04-09 12:40] LABS: Basophils # (auto) 0.05 K/uL (0-0.2); Basophils % (auto) 0.8 %; Eosinophils # (auto) 0.16 K/uL (0-0.50); Eosinophils % (auto) 2.5 %; Hemoglobin 13.3 g/dl (14.0-18.0); Immature Granulocytes # (auto) 0.01 K/uL (0.01-0.20); Immature Granulocytes % (auto) 0.2 %; Lymphocytes # (auto) 1.59 K/uL (1.2-3.4); Lymphocytes % (auto) 25.2 %; Mean Corpuscular Hemoglobin 30.1 pg (25.0-34.0); Mean Platelet Volume 9.3 fL (9.4-12.4); Monocytes # (auto) 0.78 K/uL (0.11-0.59); Monocytes % (auto) 12.4 %; Neutrophils # (auto) 3.71 K/uL (1.40-6.50); Neutrophils % (auto) 58.9 %; Platelet Count 411 K/uL (130-400); RDW Coefficient of Variation 12.3 % (11.5-14.5); RDW Standard Deviation 39.2 fL (36.4-46.3); Red Blood Count 4.42 M/uL (4.70-6.10)
--- NOTE | 2022-04-09 12:43 | XRay Report ---
SINGLE VIEW CHEST CLINICAL HISTORY: Dizziness. FINDINGS: 2 AP, portable, upright chest radiographs are compared to study dated 03/30/2022. The heart is enlarged. The pulmonary vasculature is noncongested. Chronic interstitial thickening is similar to previous. There is bibasilar scarring/atelectasis. No airspace consolidation or large pleural effusi on is identified. No pneumothorax is seen. The skeletal structures are osteopenic. The bony thorax is grossly intact. A right shoulder arthroplasty is in place. Advanced arthritic changes seen in the le ft shoulder. IMPRESSION: Cardiomegaly with no acute cardiopulmonary abnormality identified. ACT 112: Negative or not required by law. Electronically signed by: Sterling Lopez M.D. 04/09/2022 12:42 PM
[2022-04-09 13:06] LABS: Albumin Level 3.5 gm/dl (3.4-5.0); Bilirubin,Total 0.6 mg/dl (0.2-1.0); Calcium 8.8 mg/dl (8.5-10.1); Potassium 3.7 mmol/L (3.5-5.1)
[2022-04-09 13:12] LABS: Albumin Globulin Ratio 1.5 (0.9-2); BUN Creatinine Ratio 6.3 (10-20); Creatinine Clr Calc Pharmacy 99.8 ml/min; Est GFR (African American) 102.5 ml/min; Est GFR (Non-African American) 88.5 ml/min; Globulin 2.4 gm/dl (2.5-4.0); Total Protein 5.9 gm/dl (6.0-8.3)
--- NOTE | 2022-04-09 13:25 | CT Scan Report ---
HEAD CT NONCONTRAST CT DOSE: 691.05 mGy.cm HISTORY: dizzy, vision changes TECHNIQUE: Multiaxial CT images of the head were performed without the use of intravenous contrast. A utomated exposure control was utilized for this study. A dose lowering technique was utilized adheri ng to the principles of ALARA. Comparison: None. Findings: Mild to moderate mucosal thickening within the paranasal sinuses. The calvarium and skull b ase are intact. The ventricles and sulci are within normal limits. There is no mass, hematoma, midlin e shift, or acute infarct. Impression: No acute intracranial abnormality. ACT 112: Negative or not required by law. Electronically signed by: Adolfo Ramirez M.D. 04/09/2022 1:23 PM
[2022-04-09 14:04] LABS: Magnesium 1.5 mg/dl (1.7-2.4)
[2022-04-09 14:10] LABS: Phosphorus 3.3 mg/dl (2.5-4.9)
--- NOTE | 2022-04-09 16:15 | History & Physical Report ---
Date of Service April 09, 2022 Assessment & Plan (1) Acute hyponatremia: Plan: Patient presented with worsening weakness, confusion and noted to have a sodium of 124 on admission, initially had IV fluids running but these were stopped. No urine has been collected on this patient, nursing staff made aware. Review of patient's serum and urine awesome from last admission reveals Serum Osm of 259 < UOsm of 380, suggesting SIADH. Fluid restriction put in place and will trend BMP every 6 hours. Consider addition of salt tabs if continued hyponatremia and repeat lab work continues to suggest SIADH. Nephrology consulted and appreciate recommendations. Question if patient's hyponatremia is secondary to Keytruda use. He also has not had poor intake not only during last hospitalization for pancreatitis but also since discharge from the hospital. (2) Hypothyroidism: Plan: TSH has been steadily climbing, his TSH today was 22.178 with a free T4 of 0.82 (FT4 normal). Suspect more likely Keytruda/low solutes causing hyponatremia as compared to hypothyroidism. Will continue home levothyroxine 112 mcg daily and nephrology consulted as above. (3) Melanoma: Plan: History of, on Keytruda therapy. Noted on CTAP 03/30/2022 to have mildly enlarged and asymmetric lymph nodes in the left anterior chest wall/infra axillary region, which will require follow-up with oncologist. (4) Weakness: Plan: Suspect secondary to hyponatremia and deconditioning from recent hospitalization and illness. PT and OT orders placed, as suspect patient may require at minimum home health services if not rehab on discharge for strengthening. (5) Hypomagnesemia: Plan: Magnesium of 1.5 on lab work today with complaints of severe leg cramps over the last week or so. Magnesium sulfate 2 g IV given and will repeat magnesium in the morning. Plan Heparin 5000 units SQ every 12 for DVT prophylaxis Regular diet with 1200 cc fluid restriction, easy to chew Telemetry for cardiac monitoring Patient is a full code History of Present Illness Primary Care Provider: Joe Luna PA-C 76-year-old male past medical history significant for melanoma, hypothyroidism, recent admission with hyponatremia presents to the ER for worsening weakness and confusion as well as leg cramping since discharge from the hospital about a week ago. Recently discharged from [facility] on 04/01/2022 with a diagnosis of pancreatitis, and his hyponatremia was suspected to be due to GI losses at that time. He was discharged with close PCP follow-up. Unfortunately, patient has continued to have confusion, weakness, and fatigue such that he sleeps most of the day. During PCP follow-up appointment today patient was noted to be presyncopal and diaphoretic, improved with lying flat. Patient was transported to the ER from PCP office. In the ER patient was noted to have lab work significant for stable hemoglobin of 13.3, sodium of 124 (baseline around 133 with discharge sodium of 129 on 04/01), TSH of 22.1 with a free T4 of 0.82, magnesium of 1.5. Patient was given IV fluids and hospitalist service was consulted for admission. Patient denies complaints of chest pain, shortness of breath, abdominal pain, nausea, vomiting, diarrhea, fevers at home. Allergies Allergy/AdvReac Type Severity Reaction Status Date / Time Sulfa (Sulfonamide Allergy Intermediate Hives Verified 04/09/22 15:43 Antibiotics) Home Medications Medication Instructions Recorded Confirmed Type vit C 250 mg-vit E 90 mg-zinc 40 1 tab PO DAILY 01/01/19 04/09/22 History mg-copper 1 [id number] capsule (PreserVision AREDS-2) Latuda Injection 1 dose INJ .[id number] 04/09/22 04/09/22 History acetaminophen 500 mg tablet 1,000 mg PO DIRECTED PRN Pain 04/09/22 04/09/22 History (Tylenol Extra Strength) levothyroxine 112 mcg tablet 112 mcg PO DAILYBB 04/09/22 04/09/22 History Past Med/Surg History Medical History Diverticular disease [place] (hard of hearing) Hypothyroidism Melanoma Diagnosed Feb 2021 - [facility] - not known to be metastatic. Last PET Jan 2022. 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 (~01/2019) Family History Father Colon cancer Social History Smoking Status: Former smoker Second Hand Exposure: No; Hx Alcohol Use: Yes Alcohol type: beer Hx Substance Use: No Preferred Language: Turkmen Communication Ability: Effective Remelter Required: No Beliefs That Will Affect Care: None marital status: Current Living Situation: Spouse Feels Safe at Home: Yes Assistive Devices: Glasses Review of Systems Review of Systems: All systems reviewed & are unremarkable except as noted in Subjective Physical Exam Constitutional: well developed and well nourished; no acute distress Tired appearing Eyes: PERRL, conjunctivae normal, anicteric sclerae ENMT: external ear and nose normal, oropharynx normal Neck: trachea midline, no thyromegaly Respiratory: normal respiratory effort, lungs clear to auscultation Cardiovascular: RRR, no murmur, no edema Gastrointestinal (Abdomen): normal bowel sounds, soft, nontender, no hepatosplenomegaly Musculoskeletal: no cyanosis or clubbing, extremities motor strength 5/5 Skin: no rashes, warm and dry (Right back with notable biconvex large scar from melanoma surgery) Neurologic: AAOx3, normal speech. PERRLA, EOMI, no nystagmus. Bilateral UE, LE, and face without sensory or motor deficits. No tremor. Psychiatric: A+Ox3, euthymic affect Results & Data Results & Data ([facility]) Vital Signs (Past 12 Hours) Vital Signs Temp Pulse Pulse Resp BP BP Pulse Ox 04/09/22 14:02 97 04/09/22 14:00 130/84 04/09/22 13:54 99 04/09/22 13:30 74 16 98 04/09/22 13:30 144/90 H 04/09/22 13:24 86 16 04/09/22 13:24 124/68 04/09/22 13:23 80 22 04/09/22 13:23 108/64 04/09/22 13:21 71 16 04/09/22 13:21 128/75 04/09/22 13:20 78 23 04/09/22 13:20 125/75 04/09/22 13:00 68 17 98 04/09/22 13:00 108/72 04/09/22 12:30 68 11 L 96 04/09/22 12:30 107/57 L 04/09/22 12:08 02/20/23 11:15 70 16 115/58 L 100 04/09/22 11:15 36.7 C 70 16 111/54 L 100 04/09/22 11:38 70 O2 Del Method 04/09/22 14:02 Room Air 04/09/22 14:00 04/09/22 13:54 Room Air 04/09/22 13:30 Room Air 04/09/22 13:30 04/09/22 13:24 04/09/22 13:24 04/09/22 13:23 04/09/22 13:23 04/09/22 13:21 04/09/22 13:21 04/09/22 13:20 04/09/22 13:20 04/09/22 13:00 Room Air 04/09/22 13:00 04/09/22 12:30 Room Air 04/09/22 12:30 04/09/22 12:08 Room Air 04/09/22 11:15 04/09/22 11:15 Room Air 04/09/22 11:38 PG Care Time/CCT Total # of Minutes Spent Total Time Spent with Patient: Total time spent is greater than 50% in coordination of care (as documented) at patient's floor/unit and/or counseling patient: Coding Level of Care Code 14910 INT INP/OBS CARE 3/75MIN Diagnoses Acute hyponatremia E87.1 Hypothyroidism E03.9 Melanoma C43.9 Weakness R53.1 Hypomagnesemia E83.42
--- NOTE | 2022-04-09 17:10 | Electrocardiogram Report ---
Test Reason : Blood Pressure : / mmHG Vent. Rate : 068 BPM Atrial Rate : 068 BPM P-R Int : 182 ms QRS Dur : 088 ms QT Int : 432 ms P-R-T Axes : 035 040 057 degrees QTc Int : 459 ms Poor data quality, interpretation may be adversely affected Normal sinus rhythm Normal ECG When compared with ECG of 13-JAN-2019 11:02, Nonspecific T wave abnormality now evident in Lateral leads Confirmed by Lukas Ribeiro ([id number]) on 04/09/2022 5:10:43 PM Referred By: REFERRED SELF Confirmed By:Clyde Ribeiro
[2022-04-09 17:29] LABS: Creatinine Clr Calc Pharmacy 117.7 ml/min; Est GFR (African American) 109.7 ml/min; Est GFR (Non-African American) 94.7 ml/min; Potassium 4.2 mmol/L (3.5-5.1)
[2022-04-09 17:35] LABS: Thyroid Stimulating Hormone 22.178 uIu/ml (0.300-4.500)
[2022-04-09 18:13] LABS: T4 Free Thyroxine 0.82 ng/dl (0.61-1.60)
[2022-04-09] MEDS ORDERED: POLYETHYLENE (MIRALAX) 17 GM PACK PO PRN (19:49)
[2022-04-09] MEDS ORDERED: ONDANSETRON INJ 2 MG/ML 2 ML VIAL IV PRN (19:49)
[2022-04-09] MEDS: HEPARIN SOD 5,000 UNIT/0.5 ML VIAL SQ SCH (20:44)
[2022-04-09] MEDS: ACETAMINOPHEN 325 MG TAB PO PRN (20:44)
[2022-04-09] MEDS: MAGNESIUM SULFATE / D5W 1 GM/100 ML BAG IV SCH ×2 (20:45→22:50)
[2022-04-09 21:32] LABS: BUN Creatinine Ratio 6.6 (10-20); Calcium 9.3 mg/dl (8.5-10.1); Creatinine Clr Calc Pharmacy 129.3 ml/min; Est GFR (Non-African American) 98.4 ml/min; Potassium 4.2 mmol/L (3.5-5.1)
[2022-04-10 02:42] LABS: Basophils # (auto) 0.04 K/uL (0-0.2); Basophils % (auto) 0.8 %; Eosinophils # (auto) 0.14 K/uL (0-0.50); Eosinophils % (auto) 2.9 %; Hematocrit (blood only) 38.6 % (42.0-52.0); Hemoglobin 13.9 g/dl (14.0-18.0); Immature Granulocytes # (auto) 0.01 K/uL (0.01-0.20); Immature Granulocytes % (auto) 0.2 %; Lymphocytes # (auto) 1.44 K/uL (1.2-3.4); Lymphocytes % (auto) 29.4 %; Mean Corpuscular Hemoglobin 30.2 pg (25.0-34.0); Mean Corpuscular Volume 83.7 fL (80.0-100.0); Mean Platelet Volume 8.9 fL (9.4-12.4); Monocytes # (auto) 0.81 K/uL (0.11-0.59); Monocytes % (auto) 16.6 %; Neutrophils # (auto) 2.45 K/uL (1.40-6.50); Neutrophils % (auto) 50.1 %; Platelet Count 404 K/uL (130-400); RDW Coefficient of Variation 12.5 % (11.5-14.5); RDW Standard Deviation 37.5 fL (36.4-46.3); Red Blood Count 4.61 M/uL (4.70-6.10); White Blood Count 4.89 K/ul (4.8-10.8)
[2022-04-10 02:59] LABS: BUN Creatinine Ratio 6.9 (10-20); Est GFR (African American) 116.4 ml/min; Est GFR (Non-African American) 100.4 ml/min; Potassium 4.2 mmol/L (3.5-5.1)
[2022-04-10] MEDS ORDERED: LEVOTHYROXINE SODIUM 112 MCG TABLET PO SCH (06:30)
--- NOTE | 2022-04-10 06:46 | Emergency Department Note ---
Impression & Plan Hyponatremia, Melanoma, Weakness, Near syncope ED Provider Note CHIEF COMPLAINT: near syncope HISTORY OF PRESENT ILLNESS: This 76 yo male with h/o melanoma and hypothyroidism presents to the emergency department with complaints of dizziness and visual changes. Patient states it does feel as though the room is spinning. He was at his PCPs office today for evaluation. He suddenly felt lightheaded and dizzy. He had a near syncopal event in the ambulance was called. Patient does have a history of melanoma and a recent admission for acute pancreatitis. Pt has no abd pain, vomiting or diarrhea at this time. Pt states his sx do improve when at rest. REVIEW OF SYSTEMS: A review of systems was performed with positives and pertinent negatives listed in the history of present illness. 10 systems were reviewed and are otherwise negative. ALLERGIES: see below MEDICATIONS: see below PMH: see below SOCIAL HISTORY: see below DDx: PHYSICAL EXAM: Vital signs reviewed. General: Chronically ill-appearing 76-year-old male, in no significant distress. HEENT: No scleral icterus, PERRLA, neck supple. Atraumatic. Cardiovascular: Regular rate and rhythm, no extra sounds. Pulmonary: Clear to auscultation bilaterally, normal work of breathing. Abdomen: Soft, nontender, nondistended, positive bowel sounds. Musculoskeletal: Atraumatic, no peripheral edema. Neurologic: Patient awake alert and oriented x 3, speech is clear Skin: Warm, dry, no rash EMERGENCY DEPARTMENT COURSE/MDM: This patient was evaluated and appeared to be in no significant distress. External medical records were reviewed. IV access was obtained and laboratory work was drawn. Normal saline solution at 125 cc/h was initiated. The patient was placed on a financial assistant and noted to be in a normal sinus rhythm. Chest x-ray was performed and reveals no significant abnormality. CT imaging of the head was performed and reveals no significant acute abnormality. Patient's laboratory work reveals a normal lipase but a sodium of 124. Patient's was slightly hyponatremic on his recent admission however this is more significant decline. Given that the patient is symptomatic with muscle cramps, periodic confusion, weakness and a near syncopal event, his case was discussed with the hospitalist service for further management. He has expressed an understanding of the plan and agrees. MONITORING: An order for cardiac monitoring was placed and the patient is noted to be in a normal sinus rhythm at 78 beats per minute. RADIOLOGY: Chest x-ray to my interpretation reveals no evidence of focal lung consolidation or failure, shoulder replacement on the right is appreciated. Otherwise defer to radiology. Head CT to my interpretation reveals no evidence of acute intracranial hemorrhage or mass. Otherwise defer to radiology. EKG: EKG to my interpretation reveals normal sinus rhythm at 68 bpm. QTc is 459. No PVC, no PAC. Normal ST segments. DISPOSITION: Admission Past Med/Surg History Medical History Diverticular disease [place] (hard of hearing) Hypothyroidism Melanoma Diagnosed Feb 2021 - [facility] - not known to be metastatic. Last PET Jan 2022. 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 (~01/2019) Family History Father Colon cancer Social History Smoking Status: Former smoker Second Hand Exposure: No; Hx Alcohol Use: No Hx Substance Use: No Preferred Language: [place] Communication Ability: Effective Tip Out Worker Required: No Beliefs That Will Affect Care: None marital status: Current Living Situation: Spouse Feels Safe at Home: Yes Assistive Devices: Walker and Wheelchair Allergies Allergies Allergy/AdvReac Type Severity Reaction Status Date / Time Sulfa (Sulfonamide Allergy Intermediate Hives Verified 04/09/22 15:43 Antibiotics) Home Meds Home Medications Medication Instructions Recorded Confirmed vit C 250 mg-vit E 90 mg-zinc 40 1 tab PO DAILY 01/01/19 04/09/22 mg-copper 1 [id number] capsule (PreserVision AREDS-2) acetaminophen 500 mg tablet 1,000 mg PO DIRECTED PRN Pain 04/09/22 04/09/22 (Tylenol Extra Strength) Previous Rx's Medication Instructions Recorded hydrocortisone 10 mg tablet 10 mg PO QAM 30 days #30 tabs 04/13/22 (Cortef) levothyroxine 125 mcg tablet 125 mcg PO DAILYBB 30 days #30 tabs 04/13/22 (Synthroid) Results & Data (ED) Vital Signs Vital Signs - 24 hr 04/09/22 11:38 04/09/22 11:15 04/09/22 11:15 Temperature 36.7 C Temperature Source Temporal Artery Scan Pulse Rate - Lying Pulse Rate - Sitting Pulse Rate - Standing Pulse Rate 70 70 Pulse Rate [Apical] 70 Pulse Rate from SpO2 Sensor Respiratory Rate 16 16 Respiratory Effort / Characteristics Respiratory Depth Respiratory Pattern Blood Pressure - Lying Blood Pressure - Sitting Blood Pressure- Standing Blood Pressure 111/54 L Blood Pressure [Left Arm] 115/58 L Blood Pressure Mean 73 Blood Pressure Mean [Left Arm] 77 Pulse Oximetry 100 100 Oxygen Delivery Method Room Air Sepsis Recent Fever Within 48 Hours No Sepsis New/Unexplained Change in Mental Status N/A Sepsis Action Taken by Nursing No Action Required 04/09/22 12:08 04/09/22 13:30 04/09/22 12:30 Temperature Temperature Source Pulse Rate - Lying 73 Pulse Rate - Sitting 71 Pulse Rate - Standing 82 Pulse Rate Pulse Rate [Apical] Pulse Rate from SpO2 Sensor Respiratory Rate Respiratory Effort / Characteristics Respiratory Depth Respiratory Pattern Blood Pressure - Lying 125/75 Blood Pressure - Sitting 108/64 Blood Pressure- Standing 124/68 Blood Pressure 107/57 L Blood Pressure [Left Arm] Blood Pressure Mean 73 Blood Pressure Mean [Left Arm] Pulse Oximetry Oxygen Delivery Method Room Air Sepsis Recent Fever Within 48 Hours Sepsis New/Unexplained Change in Mental Status Sepsis Action Taken by Nursing 04/09/22 12:30 04/09/22 13:00 04/09/22 13:00 Temperature Temperature Source Pulse Rate - Lying Pulse Rate - Sitting Pulse Rate - Standing Pulse Rate 68 68 Pulse Rate [Apical] Pulse Rate from SpO2 Sensor 68 68 Respiratory Rate 11 L 17 Respiratory Effort / Characteristics Respiratory Depth Respiratory Pattern Blood Pressure - Lying Blood Pressure - Sitting Blood Pressure- Standing Blood Pressure 108/72 Blood Pressure [Left Arm] Blood Pressure Mean 84 Blood Pressure Mean [Left Arm] Pulse Oximetry 96 98 Oxygen Delivery Method Room Air Room Air Sepsis Recent Fever Within 48 Hours Sepsis New/Unexplained Change in Mental Status Sepsis Action Taken by Nursing 04/09/22 13:20 04/09/22 13:20 04/09/22 13:21 Temperature Temperature Source Pulse Rate - Lying Pulse Rate - Sitting Pulse Rate - Standing Pulse Rate 78 Pulse Rate [Apical] Pulse Rate from SpO2 Sensor Respiratory Rate 23 Respiratory Effort / Characteristics Respiratory Depth Respiratory Pattern Blood Pressure - Lying Blood Pressure - Sitting Blood Pressure- Standing Blood Pressure 125/75 128/75 Blood Pressure [Left Arm] Blood Pressure Mean 91 92 Blood Pressure Mean [Left Arm] Pulse Oximetry Oxygen Delivery Method Sepsis Recent Fever Within 48 Hours Sepsis New/Unexplained Change in Mental Status Sepsis Action Taken by Nursing 04/09/22 13:21 04/09/22 13:23 04/09/22 13:23 Temperature Temperature Source Pulse Rate - Lying Pulse Rate - Sitting Pulse Rate - Standing Pulse Rate 71 80 Pulse Rate [Apical] Pulse Rate from SpO2 Sensor Respiratory Rate 16 22 Respiratory Effort / Characteristics Respiratory Depth Respiratory Pattern Blood Pressure - Lying Blood Pressure - Sitting Blood Pressure- Standing Blood Pressure 108/64 Blood Pressure [Left Arm] Blood Pressure Mean 78 Blood Pressure Mean [Left Arm] Pulse Oximetry Oxygen Delivery Method Sepsis Recent Fever Within 48 Hours Sepsis New/Unexplained Change in Mental Status Sepsis Action Taken by Nursing 04/09/22 13:24 04/09/22 13:24 04/09/22 13:30 Temperature Temperature Source Pulse Rate - Lying Pulse Rate - Sitting Pulse Rate - Standing Pulse Rate 86 Pulse Rate [Apical] Pulse Rate from SpO2 Sensor Respiratory Rate 16 Respiratory Effort / Characteristics Respiratory Depth Respiratory Pattern Blood Pressure - Lying Blood Pressure - Sitting Blood Pressure- Standing Blood Pressure 124/68 144/90 H Blood Pressure [Left Arm] Blood Pressure Mean 86 108 Blood Pressure Mean [Left Arm] Pulse Oximetry Oxygen Delivery Method Sepsis Recent Fever Within 48 Hours Sepsis New/Unexplained Change in Mental Status Sepsis Action Taken by Nursing 04/09/22 13:30 04/09/22 13:54 04/09/22 14:00 Temperature Temperature Source Pulse Rate - Lying Pulse Rate - Sitting Pulse Rate - Standing Pulse Rate 74 Pulse Rate [Apical] Pulse Rate from SpO2 Sensor 73 77 Respiratory Rate 16 Respiratory Effort / Characteristics Respiratory Depth Respiratory Pattern Blood Pressure - Lying Blood Pressure - Sitting Blood Pressure- Standing Blood Pressure 130/84 Blood Pressure [Left Arm] Blood Pressure Mean 99 Blood Pressure Mean [Left Arm] Pulse Oximetry 98 99 Oxygen Delivery Method Room Air Room Air Sepsis Recent Fever Within 48 Hours Sepsis New/Unexplained Change in Mental Status Sepsis Action Taken by Nursing 04/09/22 14:02 04/09/22 16:30 04/09/22 14:31 Temperature Temperature Source Pulse Rate - Lying Pulse Rate - Sitting Pulse Rate - Standing Pulse Rate Pulse Rate [Apical] Pulse Rate from SpO2 Sensor 76 Respiratory Rate 20 Respiratory Effort / Characteristics Non-Labored Respiratory Depth Normal Respiratory Pattern Regular Blood Pressure - Lying Blood Pressure - Sitting Blood Pressure- Standing Blood Pressure 132/88 Blood Pressure [Left Arm] Blood Pressure Mean 102 Blood Pressure Mean [Left Arm] Pulse Oximetry 97 98 Oxygen Delivery Method Room Air Room Air Sepsis Recent Fever Within 48 Hours Sepsis New/Unexplained Change in Mental Status Sepsis Action Taken by Nursing 04/09/22 14:31 Temperature Temperature Source Pulse Rate - Lying Pulse Rate - Sitting Pulse Rate - Standing Pulse Rate Pulse Rate [Apical] Pulse Rate from SpO2 Sensor 72 Respiratory Rate Respiratory Effort / Characteristics Respiratory Depth Respiratory Pattern Blood Pressure - Lying Blood Pressure - Sitting Blood Pressure- Standing Blood Pressure Blood Pressure [Left Arm] Blood Pressure Mean Blood Pressure Mean [Left Arm] Pulse Oximetry 95 Oxygen Delivery Method Sepsis Recent Fever Within 48 Hours Sepsis New/Unexplained Change in Mental Status Sepsis Action Taken by Residential Medications Current Medication List: was personally reviewed by me Laboratory Data Attestation: I reviewed the patient's lab results. 04/10/22 02:22 04/10/22 02:22 Lab Results 04/09/22 04/09/22 04/09/22 Range/Units 11:35 11:35 11:35 WBC 6.30 (4.8-10.8) K/ul RBC 4.42 L (4.70-6.10) M/uL Hgb 13.3 L (14.0-18.0) g/dl Hct 38.0 L (42.0-52.0) % MCV 86.0 (80.0-100.0) fL MCH 30.1 (25.0-34.0) pg MCHC 35.0 (32.0-36.0) g/dL RDW Std Deviation 39.2 (36.4-46.3) fL RDW Coeff of Joshua 12.3 (11.5-14.5) % Plt Count 411 H (130-400) K/uL MPV 9.3 L (9.4-12.4) fL Immature Gran % (Auto) 0.2 % Neut % (Auto) 58.9 % Lymph % (Auto) 25.2 % Over[place] % (Auto) 12.4 % Eos % (Auto) 2.5 % Baso % (Auto) 0.8 % Neut # (Auto) 3.71 (1.40-6.50) K/uL Lymph # (Auto) 1.59 (1.2-3.4) K/uL [place] # (Auto) 0.78 H (0.11-0.59) K/uL Eos # (Auto) 0.16 (0-0.50) K/uL Baso # (Auto) 0.05 (0-0.2) K/uL Immature Gran # (Auto) 0.01 (0.01-0.20) K/uL Sodium 124 L (136-145) mmol/L Potassium 3.7 (3.5-5.1) mmol/L Chloride 93 L (98-107) mmol/L Carbon Dioxide 28 (21-32) mmol/L Anion Gap 3 (3-11) BUN 5 L (6-23) mg/dl Creatinine 0.79 (0.6-1.4) mg/dl Est Cr Clr Drug Dosing 99.8 ml/min Est GFR ( Amer) 102.5 ml/min Est GFR (Non-Af Amer) 88.5 ml/min BUN/Creatinine Ratio 6.3 L (10-20) Glucose 144 H (70-99(Fasting)) mg/dl Osmolality (280-300) mOsm/kg Calcium 8.8 (8.5-10.1) mg/dl Phosphorus 3.3 (2.5-4.9) mg/dl Magnesium 1.5 L (1.7-2.4) mg/dl Total Bilirubin 0.6 (0.2-1.0) mg/dl AST 34 (13-39) U/L ALT 54 H (7-52) U/L Alkaline Phosphatase 58 (34-104) U/L Total Protein 5.9 L (6.0-8.3) gm/dl Albumin 3.5 (3.4-5.0) gm/dl Globulin 2.4 L (2.5-4.0) gm/dl Albumin/Globulin Ratio 1.5 (0.9-2) TSH (0.300-4.500) uIu/ml Free T4 (0.61-1.60) ng/dl SARS-CoV-2, RNA, NAAT (NEGATIVE) 04/09/22 04/09/22 04/09/22 Range/Units 11:35 11:35 12:45 WBC (4.8-10.8) K/ul RBC (4.70-6.10) M/uL Hgb (14.0-18.0) g/dl Hct (42.0-52.0) % MCV (80.0-100.0) fL MCH (25.0-34.0) pg MCHC (32.0-36.0) g/dL RDW Std Deviation (36.4-46.3) fL RDW Coeff of Joshua (11.5-14.5) % Plt Count (130-400) K/uL MPV (9.4-12.4) fL Immature Gran % (Auto) % Neut % (Auto) % Lymph % (Auto) % [place] % (Auto) % Eos % (Auto) % Baso % (Auto) % Neut # (Auto) (1.40-6.50) K/uL Lymph # (Auto) (1.2-3.4) K/uL [place] # (Auto) (0.11-0.59) K/uL Eos # (Auto) (0-0.50) K/uL Baso # (Auto) (0-0.2) K/uL Immature Gran # (Auto) (0.01-0.20) K/uL Sodium (136-145) mmol/L Potassium (3.5-5.1) mmol/L Chloride (98-107) mmol/L Carbon Dioxide (21-32) mmol/L Anion Gap (3-11) BUN (6-23) mg/dl Creatinine (0.6-1.4) mg/dl Est Cr Clr Drug Dosing ml/min Est GFR ( Amer) ml/min Est GFR (Non-Af Amer) ml/min BUN/Creatinine Ratio (10-20) Glucose (70-99(Fasting)) mg/dl Osmolality 259 L (280-300) mOsm/kg Calcium (8.5-10.1) mg/dl Phosphorus (2.5-4.9) mg/dl Magnesium (1.7-2.4) mg/dl Total Bilirubin (0.2-1.0) mg/dl AST (13-39) U/L ALT (7-52) U/L Alkaline Phosphatase (34-104) U/L Total Protein (6.0-8.3) gm/dl Albumin (3.4-5.0) gm/dl Globulin (2.5-4.0) gm/dl Albumin/Globulin Ratio (0.9-2) TSH 22.178 H (0.300-4.500) uIu/ml Free T4 0.82 (0.61-1.60) ng/dl SARS-CoV-2, RNA, NAAT NEGATIVE (NEGATIVE) Administered Medications Discontinued Medications Acetaminophen (Acetaminophen 325 Mg Tab) 650 mg PO Q4H PRN PRN Reason: Pain or Fever Stop: 05/09/22 19:48 Last Admin: 04/13/22 06:29 Dose: 650 mg Documented By: Admin: 04/09/22 20:44 Dose: 650 mg Documented By: NAZANIN Heparin Sodium (Porcine) (Heparin Sod 5,000 Unit/0.5 Ml Vial) 5,000 units SQ Q12 BELÉN Stop: 05/09/22 20:59 Last Admin: 04/13/22 08:15 Dose: 5,000 units Documented By: Admin: 04/12/22 20:15 Dose: 5,000 units Documented By: Admin: 04/12/22 08:14 Dose: 5,000 units Documented By: Admin: 04/11/22 20:39 Dose: 5,000 units Documented By: Admin: 04/11/22 08:11 Dose: 5,000 units Documented By: Admin: 04/10/22 20:29 Dose: 5,000 units Documented By: Admin: 04/10/22 08:13 Dose: 5,000 units Documented By: Admin: 04/09/22 20:44 Dose: 5,000 units Documented By: NAZANIN Hydrocortisone (Hydrocortis[facility] 10 Mg Tab) [facility] [place]: 05/12/22 08:59 Last Admin: 04/13/22 08:15 Dose: 10 mg Documented By: Admin: 04/12/22 08:14 Dose: 10 mg Documented By: ITA Sodium Chloride (Nss 1000ml) 1,000 mls @ 125 mls/hr IV .Q8H BELÉN Stop: 05/09/22 12:14 Last Admin: 04/09/22 13:29 Dose: Not Given Documented By: ALPHONSO Sodium Chloride (Nss 1000ml) 1,000 mls @ 125 mls/hr IV .Q8H BELÉN Stop: 05/09/22 12:59 Last Infusion: 04/09/22 18:30 Dose: 0 mls/hr Documented By: Admin: 04/09/22 13:29 Dose: 125 mls/hr Documented By: ALPHONSO Magnesium Sulfate/Dextrose (Magnesium Sulfate / D5w) 1 gm in 100 mls @ 50 mls/hr IV Q2H BELÉN Stop: 04/09/22 23:48 Last Infusion: 04/10/22 01:22 Dose: 0 mls/hr Documented By: Admin: 04/09/22 22:50 Dose: 50 mls/hr Documented By: Infusion: 04/09/22 22:45 Dose: 50 mls/hr Documented By: Admin: 04/09/22 20:45 Dose: 50 mls/hr Documented By: NAZANIN Sodium Chloride (Hypertonic Saline 3%) 150 mls @ 450 mls/hr IV .Q20M ONE; Protocol Stop: 04/10/22 11:50 Last Infusion: 04/10/22 12:59 Dose: 0 mls/hr Documented By: Co-signed By: VIVEK Admin: 04/10/22 12:39 Dose: 450 mls/hr Documented By: Co-signed By: JULISA Sodium Chloride (Hypertonic Saline 3%) 150 mls @ 450 mls/hr IV .Q20M ONE; Protocol Stop: 04/10/22 18:39 Last Infusion: 04/10/22 19:09 Dose: 0 mls/hr Documented By: KS Co-signed By: EVANGELISTA Admin: 04/10/22 18:40 Dose: 450 mls/hr Documented By: MS Co-signed By: GABY Sodium Chloride (Hypertonic Saline 3%) 100 mls @ 600 mls/hr IV .Q10M ONE; Protocol Stop: 04/10/22 23:39 Last Infusion: 04/10/22 23:59 Dose: 0 mls/hr Documented By: KS Co-signed By: EVANGELISTA Admin: 04/10/22 23:44 Dose: 600 mls/hr Documented By: KS Co-signed By: AMY Sodium Chloride (Hypertonic Saline 3%) 100 mls @ 600 mls/hr IV .Q10M ONE; Protocol Stop: 04/11/22 08:56 Last Infusion: 04/11/22 10:09 Dose: 0 mls/hr Documented By: ITA Co-signed By: VIVEK Admin: 04/11/22 09:25 Dose: 600 mls/hr Documented By: ITA Co-signed By: RAY Hydrocortisone Sodium (Succinate 100 mg/ Syringe) 2 mls @ 4 mls/min IV NOW STA Stop: 04/11/22 15:58 Last Admin: 04/11/22 17:32 Dose: 4 mls/min Documented By: ITA Sodium Chloride (Hypertonic Saline 3%) 150 mls @ 450 mls/hr IV .Q20M ONE; Protocol Stop: 04/11/22 20:05 Last Infusion: 04/11/22 20:29 Dose: 0 mls/hr Documented By: MERRILL Co-signed By: BALJIT Admin: 04/11/22 20:09 Dose: 450 mls/hr Documented By: MERRILL Co-signed By: BALJIT Levothyroxine Sodium (Levothyroxine Sodium 112 Mcg Tablet) 112 mcg PO DAILYBB [facility] Stop: 05/10/22 06:29 Last Admin: 04/10/22 04:51 Dose: 112 mcg Documented By: NAZANIN Levothyroxine Sodium (Levothyroxine Sodium 125 Mcg Tablet) 125 mcg PO DAILYBB [facility] Stop: 05/11/22 06:29 Last Admin: 04/13/22 06:30 Dose: 125 mcg Documented By: Admin: 04/12/22 05:58 Dose: 125 mcg Documented By: Admin: 04/11/22 05:19 Dose: 125 mcg Documented By: NAZANIN Polyethylene Glycol (Polyethylene (Miralax) 17 Gm Pack) 17 gm PO DAILY PRN PRN Reason: Constipation Stop: 05/09/22 19:48 Last Admin: 04/13/22 08:18 Dose: 17 gm Documented By: VAUGHN Discharge Plan Visit Data Chief Complaint: Syncope (Near Syncope) ED Provider: Alma Coon Discharge Problem: Hyponatremia, Melanoma, Weakness, Near syncope Patient Disposition: Admitted As Inpatient Discharge Instructions Interventions: ED Discharge Assessment Last Done: 04/09/22 18:28
--- NOTE | 2022-04-10 07:11 | Hospitalist Progress Note ---
Date of Service April 10, 2022 Assessment & Plan (1) Acute hyponatremia: Plan: Patient presented with worsening weakness, confusion and noted to have a sodium of 124 on admission Urine osmolality= 142, urine sodium= 34; indicative of hypotonic hyponatremia -> SIADH vs hypothyroidism-> likely secondary to Keytruda - Continue fluid restriction - Was given hypertonic saline this afternoon and sodium came up from 124 to 125; will plan to repeat in 6 hours. If sodium remains stable/increases will check again in morning. If sodium decreases will plan to give another round of hypertonic saline - Nephrology consulted and appreciate recommendations. - Plan to check serum cortisol/ACTH once sodium improves to evaluate for underlying adrenal insufficiency (2) Hypothyroidism: Plan: TSH has been steadily climbing, his TSH today was 22.178 with a free T4 of 0.82 (FT4 normal). Likely contributing to hyponatremia Will continue home levothyroxine 125 mcg daily (3) Melanoma: Plan: History of, on Keytruda therapy. Noted on CTAP 03/30/2022 to have mildly enlarged and asymmetric lymph nodes in the left anterior chest wall/infra axillary region, which will require follow-up with oncologist. (4) Weakness: Plan: Suspect secondary to hyponatremia and deconditioning from recent hospitalization and illness. PT and OT orders placed (5) Hypomagnesemia: Plan: Magnesium of 1.5 on admission, repleted. Mg= 2 this morning. Plan Heparin 5000 units SQ every 12 for DVT prophylaxis Regular diet with 1200 cc fluid restriction, easy to chew Telemetry for cardiac monitoring Patient is a full code Admission and Anticipated Discharge Date Admission Date: April 09, 2022 Supervising Physician Co-Signing Physician Notes Attending attestation Pt seen and examined in concert with Dr. Barnes. In agreement with the documented findings as noted in the resident documentation with any exceptions or additions as noted here. Somewhat confused in bed with episodic echolalia, unsure if this is baseline and hearing related or AMS 2/2 hyponatremia or other causes. Presently reports feeling improved from admission, though still fatigued. On examination, S1/S2 nl RRR no MCG. CTAB. Abd NT/ND BS+ve Hyponatremia in the setting of melanoma on keytruda, last dose >1 mo ago - nephro consult - continue to monitor BMP q4-6 hours s/p hypertonic saline with likely repeat of same pending. Hypothyroidism - recently adjusted outpatient from 100mcg to 112mcg - will defer further adjustment at this time 2/2 changes with acute setting but could consider uptitration more acutely based on recheck of TSH. Else see resident documentation as noted. Subjective No events overnight. Still fatigued and complains of generalized weakness. States that cramping in his leg has improved. Tolerated good PO intake. Review of Systems Review of Systems: As per above Physical Exam Physical Exam: Constitutional: well-appearing, no acute distress HEENT: NCAT, no conjunctival injection CV: regular rhythm, no murmur appreciated, extremities well-perfused, no LE edema Resp: CTABL, no wheezes/rales/rhonchi appreciated, no increased work of breathing GI: soft, nondistended, nontender MSK: no gross deformities appreciated Skin: warm, dry, no rash appreciated Neuro: alert, oriented, no focal neurologic deficit appreciated. Strength 5/5 LE Results & Data Results & Data ([facility]) Vital Signs (Past 12 Hours) Vital Signs Temp Pulse Resp BP Pulse Ox O2 Del Method 04/10/22 03:49 36.7 C 71 18 146/74 H 96 Room Air 04/09/22 22:00 36.6 C 77 18 114/71 97 Room Air Resident Activity Tracking Resident Involvement: Resident Care Provided Care Provided: Adult Hospital Medicine
[2022-04-10] MEDS: HEPARIN SOD 5,000 UNIT/0.5 ML VIAL SQ SCH ×2 (08:13→20:29)
--- NOTE | 2022-04-10 11:05 | Nephrology Consultation ---
Date of Consultation April 10, 2022 Assessment & Plan (1) Hyponatremia: Complicated by hypothyroidism and possible adrenocortical insufficiency potentially associated with Keytruda. However, appears hypovolemic on exam. Hypertonic IVF will be provided with close monitoring. I discussed the patient with Dr. Vizcarra this morning. Adequate thyroid replacement will be necessary for management. As serum sodium improves, I would also suggest repeating serum cortisol and ACTH to evaluate for underlying adrenal insufficiency and follow up ACTH stim test as needed. (2) Melanoma: Managed by Dr. Preciado. Last Keyruda treatment was held. The patient's management team will need to be contacted regarding recent hospitalization and potential medication side effects, including persistent dysnatremia and hypothyroidism. (3) Hypothyroidism: Levothyroxine management per primary team. Remains clinically hypothyroid. History of Present Illness Reason for Consultation: hyponatremia recent admit, now worse, on keytruda Requesting Physician: Lavelle Vizcarra MD Attending Physician: Lavelle Vizcarra MD History of Present Illness Mr. Jeffy Coronado is a 76 year-old male with melanoma currently receiving treatment through [facility] under the care of Dr. Kerry Preciado. Jeffy has been maintained on Keytruda since June 2021. Medical history also notable for recent diagnosis of hypothyroidism. Jeffy was recently admitted to [facility] earlier this month with pancreatitis and hyponatremia. Hyponatremia was attributed to GI losses. He was referred back to the hospital yesterday by his PCP for evaluation of presyncope, weakness and shortness of breath. Jeffy was seen and evaluated with his at the bedside this AM. Laboratory studies on admission notable for a serum sodium of 124 mmol/L. Sodium was 129 on April 01. TSH 22 with a free T4 of 0.82. On March 30, TSH had been 10 with a random cortisol level of 0.5. IVF were provided on admission and the patient has been maintained on a free water restriction overnight. ROS is notable for decreased appetite and progressive weight loss. Jeffy has been struggling with chronic fatigue and decreased activity tolerance. He is drinking lots of fluids and his recently purchased Gatorade Zero + protein to encourage electrolyte and protein intake. Jeffy denies any fluid retention or edema. He lightheadedness has improved slightly. He denies any chest pain or palpitations. He reports some persistent dyspnea, notably with exertion. Allergies Allergy/AdvReac Type Severity Reaction Status Date / Time Sulfa (Sulfonamide Allergy Intermediate Hives Verified 04/09/22 15:43 Antibiotics) Home Medications Medication Instructions Recorded Confirmed Type vit C 250 mg-vit E 90 mg-zinc 40 1 tab PO DAILY 01/01/19 04/09/22 History mg-copper 1 [id number] capsule (PreserVision AREDS-2) Latuda Injection 1 dose INJ .Q3WK 04/09/22 04/09/22 History acetaminophen 500 mg tablet 1,000 mg PO DIRECTED PRN Pain 04/09/22 04/09/22 History (Tylenol Extra Strength) levothyroxine 112 mcg tablet 112 mcg PO DAILYBB 04/09/22 04/09/22 History Patient History Medical History Diverticular disease PAUMA (hard of hearing) Hypothyroidism Melanoma Diagnosed Feb 2021 - [facility] - not known to be metastatic. Last PET Jan 2022. 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 (~01/2019) Family History Father Colon cancer Social History Smoking Status: Former smoker Second Hand Exposure: No; Do You Dip or Chew Tobacco: No; Tobacco Cessation Education Requested by Patient: No Hx Alcohol Use: No Hx Substance Use: No Preferred Language: Cameroonian Communication Ability: Effective Plant Maintenance Technician Required: No Beliefs That Will Affect Care: None marital status: Current Living Situation: Spouse Other Information That Helps Us Care for You: No Feels Safe at Home: Yes Safety Concerns: Feels Safe At This Time Assistive Devices: Glasses and Walker Review of Systems Review of Systems: All systems reviewed & are unremarkable except as noted in HPI & below Physical Exam Constitutional: well developed and + ill appearing; no acute distress Eyes: + anicteric sclerae; no corneal abnormality ENMT: Mouth: + dry oral mucous membranes; no oral mucosal abnormality Neck: normal visual inspection and trachea midline Respiratory: normal respiratory effort Auscultation: lungs clear to auscultation bilaterally Cardiovascular: Rate/Rhythm: regular rate Heart Sounds: normal S1 and normal S2 Extremities: no edema Musculoskeletal: Extremities: no cyanosis and no clubbing Skin: + turgor decreased and + dry skin; no jaundice Neurologic: Motor/Sensory: no tremor and no asterixis Psychiatric: Orientation: alert and oriented x 3 Results & Data ([facility]) Vital Signs (Past 12 Hours) Vital Signs Temp Pulse Pulse Resp BP Pulse Ox O2 Del Method 04/10/22 08:01 71 04/10/22 07:26 36.5 C 69 19 109/62 96 Room Air 04/10/22 03:49 36.7 C 71 18 146/74 H 96 Room Air Laboratory Results Laboratory Results - last 24 hr 04/09/22 04/09/22 04/09/22 11:35 11:35 11:35 WBC 6.30 RBC 4.42 L Hgb 13.3 L Hct 38.0 L MCV 86.0 MCH 30.1 MCHC 35.0 RDW Std Deviation 39.2 RDW Coeff of Joshua 12.3 Plt Count 411 H MPV 9.3 L Immature Gran % (Auto) 0.2 Neut % (Auto) 58.9 Lymph % (Auto) 25.2 [place] % (Auto) 12.4 Eos % (Auto) 2.5 Baso % (Auto) 0.8 Neut # (Auto) 3.71 Lymph # (Auto) 1.59 [place] # (Auto) 0.78 H Eos # (Auto) 0.16 Baso # (Auto) 0.05 Immature Gran # (Auto) 0.01 Sodium 124 L Potassium 3.7 Chloride 93 L Carbon Dioxide 28 Anion Gap 3 BUN 5 L Creatinine 0.79 Est Cr Clr Drug Dosing 99.8 Est GFR ( Amer) 102.5 Est GFR (Non-Af Amer) 88.5 BUN/Creatinine Ratio 6.3 L Glucose 144 H Osmolality Calcium 8.8 Phosphorus 3.3 Magnesium 1.5 L Total Bilirubin 0.6 AST 34 ALT 54 H Alkaline Phosphatase 58 Total Protein 5.9 L Albumin 3.5 Globulin 2.4 L Albumin/Globulin Ratio 1.5 TSH Free T4 Urine Osmolality Ur Random Sodium SARS-CoV-2, RNA, NAAT 04/09/22 04/09/22 04/09/22 11:35 11:35 12:45 WBC RBC Hgb Hct MCV MCH MCHC RDW Std Deviation RDW Coeff of Joshua Plt Count MPV Immature Gran % (Auto) Neut % (Auto) Lymph % (Auto) [place] % (Auto) Eos % (Auto) Baso % (Auto) Neut # (Auto) Lymph # (Auto) [place] # (Auto) Eos # (Auto) Baso # (Auto) Immature Gran # (Auto) Sodium Potassium Chloride Carbon Dioxide Anion Gap BUN Creatinine Est Cr Clr Drug Dosing Est GFR ( Amer) Est GFR (Non-Af Amer) BUN/Creatinine Ratio Glucose Osmolality 259 L Calcium Phosphorus Magnesium Total Bilirubin AST ALT Alkaline Phosphatase Total Protein Albumin Globulin Albumin/Globulin Ratio TSH 22.178 H Free T4 0.82 Urine Osmolality Ur Random Sodium SARS-CoV-2, RNA, NAAT NEGATIVE 04/09/22 04/09/22 04/09/22 16:59 20:52 23:40 WBC RBC Hgb Hct MCV MCH MCHC RDW Std Deviation RDW Coeff of Joshua Plt Count MPV Immature Gran % (Auto) Neut % (Auto) Lymph % (Auto) [place] % (Auto) Eos % (Auto) Baso % (Auto) Neut # (Auto) Lymph # (Auto) [place] # (Auto) Eos # (Auto) Baso # (Auto) Immature Gran # (Auto) Sodium 124 L 125 L Potassium 4.2 4.2 Chloride 94 L 94 L Carbon Dioxide 26 25 Anion Gap 4 6 BUN 4 L 4 L Creatinine 0.67 0.61 Est Cr Clr Drug Dosing 117.7 129.3 Est GFR ( Amer) 109.7 114.0 Est GFR (Non-Af Amer) 94.7 98.4 BUN/Creatinine Ratio 6.0 L 6.6 L Glucose 117 H 123 H Osmolality Calcium 9.0 9.3 Phosphorus Magnesium Total Bilirubin AST ALT Alkaline Phosphatase Total Protein Albumin Globulin Albumin/Globulin Ratio TSH Free T4 Urine Osmolality 142 L Ur Random Sodium SARS-CoV-2, RNA, NAAT 04/09/22 04/10/22 04/10/22 23:40 02:22 02:22 WBC 4.89 RBC 4.61 L Hgb 13.9 L Hct 38.6 L MCV 83.7 MCH 30.2 MCHC 36.0 RDW Std Deviation 37.5 RDW Coeff of Joshua 12.5 Plt Count 404 H MPV 8.9 L Immature Gran % (Auto) 0.2 Neut % (Auto) 50.1 Lymph % (Auto) 29.4 [place] % (Auto) 16.6 Eos % (Auto) 2.9 Baso % (Auto) 0.8 Neut # (Auto) 2.45 Lymph # (Auto) 1.44 [place] # (Auto) 0.81 H Eos # (Auto) 0.14 Baso # (Auto) 0.04 Immature Gran # (Auto) 0.01 Sodium 124 L Potassium 4.2 Chloride 94 L Carbon Dioxide 23 Anion Gap 7 BUN 4 L Creatinine 0.58 L Est Cr Clr Drug Dosing 136.0 Est GFR ( Amer) 116.4 Est GFR (Non-Af Amer) 100.4 BUN/Creatinine Ratio 6.9 L Glucose 123 H Osmolality Calcium 9.0 Phosphorus Magnesium Total Bilirubin AST ALT Alkaline Phosphatase Total Protein Albumin Globulin Albumin/Globulin Ratio TSH Free T4 Urine Osmolality Ur Random Sodium 34 SARS-CoV-2, RNA, NAAT 04/10/22 04/10/22 02:22 09:49 WBC RBC Hgb Hct MCV MCH MCHC RDW Std Deviation RDW Coeff of Joshua Plt Count MPV Immature Gran % (Auto) Neut % (Auto) Lymph % (Auto) [place] % (Auto) Eos % (Auto) Baso % (Auto) Neut # (Auto) Lymph # (Auto) [place] # (Auto) Eos # (Auto) Baso # (Auto) Immature Gran # (Auto) Sodium 124 L Potassium 4.1 Chloride 94 L Carbon Dioxide 24 Anion Gap 6 BUN 4 L Creatinine 0.63 Est Cr Clr Drug Dosing 113.1 Est GFR ( Amer) 112.5 Est GFR (Non-Af Amer) 97.1 BUN/Creatinine Ratio 6.3 L Glucose 128 H Osmolality Calcium 9.2 Phosphorus Magnesium 2.0 Total Bilirubin AST ALT Alkaline Phosphatase Total Protein Albumin Globulin Albumin/Globulin Ratio TSH Free T4 Urine Osmolality Ur Random Sodium SARS-CoV-2, RNA, NAAT PG Care Time/CCT Total # of Minutes Spent Total Time Spent with Patient: Total time spent is greater than 50% in coordination of care (as documented) at patient's floor/unit and/or counseling patient: Coding Level of Care Code INP/OBS CONSULT LVL 4, 60 MIN Diagnoses Hyponatremia E87.1 Melanoma C43.9 Hypothyroidism E03.9
[2022-04-10 11:15] LABS: BUN Creatinine Ratio 6.3 (10-20); Calcium 9.2 mg/dl (8.5-10.1); Creatinine Clr Calc Pharmacy 113.1 ml/min; Est GFR (African American) 112.5 ml/min; Est GFR (Non-African American) 97.1 ml/min; Potassium 4.1 mmol/L (3.5-5.1)
[2022-04-10] MEDS ORDERED: STAT IV STA ×3 (11:31→23:13)
[2022-04-10] MEDS ORDERED: SODIUM CHLORIDE 3 % 150 ML IV ONE ×2 (11:31→18:20)
[2022-04-10 15:54] LABS: Albumin Level 3.8 gm/dl (3.4-5.0); BUN Creatinine Ratio 7.9 (10-20); Calcium 9.2 mg/dl (8.5-10.1); Creatinine Clr Calc Pharmacy 113.1 ml/min; Est GFR (African American) 112.5 ml/min; Est GFR (Non-African American) 97.1 ml/min; Phosphorus 3.4 mg/dl (2.5-4.9); Potassium 4.2 mmol/L (3.5-5.1)
[2022-04-10 22:15] LABS: BUN Creatinine Ratio 9.8 (10-20); Calcium 9.1 mg/dl (8.5-10.1); Est GFR (Non-African American) 98.4 ml/min; Potassium 3.9 mmol/L (3.5-5.1)
[2022-04-10] MEDS ORDERED: SODIUM CHLORIDE 3 % 100 ML IV ONE (23:30)
[2022-04-11] MEDS: LEVOTHYROXINE SODIUM 125 MCG TABLET PO SCH (05:19)
--- NOTE | 2022-04-11 07:04 | Hospitalist Progress Note ---
Date of Service April 11, 2022 Assessment & Plan (1) Acute hyponatremia: Plan: Patient presented with worsening weakness, confusion and noted to have a sodium of 124 on admission Urine osmolality= 142, urine sodium= 34; indicative of hypotonic hyponatremia -> SIADH vs hypothyroidism-> likely secondary to Keytruda in the setting of hypothyroidism, adrenal insufficiency - Continue fluid restriction - Nephrology consulted and appreciate recommendations. (2) Hypothyroidism: Plan: TSH has been steadily climbing, his TSH today was 22.178 with a free T4 of 0.82 (FT4 normal). Likely contributing to hyponatremia Will continue home levothyroxine 125 mcg daily (3) Melanoma: Plan: History of, on Keytruda therapy. Noted on CTAP 03/30/2022 to have mildly enlarged and asymmetric lymph nodes in the left anterior chest wall/infra axillary region, which will require follow-up with oncologist. (4) Weakness: Plan: Suspect secondary to hyponatremia and deconditioning from recent hospitalization and illness. PT and OT orders placed; recommending IP rehab (5) Hypomagnesemia: Plan: Magnesium of 1.5 on admission, repleted. Mg= 1.7 this morning. (6) Adrenal insufficiency: Plan: - likely secondary to Keytruda - Plan to start 100mg today and 10mg moving foward (7) Osteoarthritis of left shoulder: Plan: - cortisone injections in the past, defer at this time as we are starting him on systemic steriods Plan Heparin 5000 units SQ every 12 for DVT prophylaxis Regular diet with 1200 cc fluid restriction, easy to chew Telemetry for cardiac monitoring Patient is a full code Admission and Anticipated Discharge Date Admission Date: April 09, 2022 Supervising Physician Co-Signing Physician Notes Attending attestation Pt seen and examined in concert with Dr. Barnes. In agreement with the documented findings as noted in the resident documentation with any exceptions or additions as noted here. Speaking more clearly and interactively today than previous, no more echolalia. Complaining of chronic left sided shoulder pain which has been previously followed by Dr. Pelayo and is due for IACS therapy. On examination, S1/S2 nl RRR no MCG. CTAB. Abd NT/ND BS+ve Hyponatremia in the setting of melanoma on keytruda, last dose >1 mo ago, low cortisol - nephro consult - continue to monitor BMP q4-6 hours s/p hypertonic saline with likely repeat of same pending. Add HC as noted. Hypothyroidism - recently adjusted outpatient from 100mcg to 112mcg - upadjusted to 125mcg. Recheck TSH in 6-8 wks Left shoulder pain - reviewed options, IACS per primary vs. ortho - as is getting HC therapy, will defer injection treatments at this time. Else see resident documentation as noted. Subjective No events overnight. Up in chair this morning. Still having some fatigue. Notes shoulder pain, which makes using walker more difficult. Review of Systems Review of Systems: As per above Physical Exam Physical Exam: Constitutional: well-appearing, no acute distress HEENT: NCAT, no conjunctival injection CV: regular rhythm, no murmur appreciated, extremities well-perfused, no LE edema Resp: CTABL, no wheezes/rales/rhonchi appreciated, no increased work of breathing GI: soft, nondistended, nontender MSK: no gross deformities appreciated Skin: warm, dry, no rash appreciated Neuro: alert, oriented, no focal neurologic deficit appreciated. Strength 5/5 LE Results & Data Results & Data ([facility]) Vital Signs (Past 12 Hours) Vital Signs Temp Pulse Resp BP Pulse Ox O2 Del Method 04/11/22 06:54 36.6 C 77 19 110/70 95 Room Air 04/11/22 03:00 36.5 C 94 H 20 130/72 94 Room Air 04/10/22 22:24 36.8 C 73 18 124/75 96 Room Air Resident Activity Tracking Resident Involvement: Resident Care Provided Care Provided: Adult Hospital Medicine
[2022-04-11 07:34] LABS: Basophils # (auto) 0.04 K/uL (0-0.2); Basophils % (auto) 0.7 %; Eosinophils # (auto) 0.14 K/uL (0-0.50); Eosinophils % (auto) 2.5 %; Hematocrit (blood only) 39.8 % (42.0-52.0); Immature Granulocytes # (auto) 0.01 K/uL (0.01-0.20); Immature Granulocytes % (auto) 0.2 %; Lymphocytes # (auto) 1.35 K/uL (1.2-3.4); Lymphocytes % (auto) 24.2 %; Mean Corpuscular Hemoglobin 30.3 pg (25.0-34.0); Mean Corpuscular Hgb Conc 35.2 g/dL (32.0-36.0); Mean Corpuscular Volume 86.1 fL (80.0-100.0); Monocytes # (auto) 0.91 K/uL (0.11-0.59); Monocytes % (auto) 16.3 %; Neutrophils # (auto) 3.13 K/uL (1.40-6.50); Neutrophils % (auto) 56.1 %; Platelet Count 438 K/uL (130-400); RDW Coefficient of Variation 12.5 % (11.5-14.5); RDW Standard Deviation 39.3 fL (36.4-46.3); Red Blood Count 4.62 M/uL (4.70-6.10); White Blood Count 5.58 K/ul (4.8-10.8)
[2022-04-11 07:50] LABS: BUN Creatinine Ratio 5.8 (10-20); Calcium 9.2 mg/dl (8.5-10.1); Est GFR (African American) 108.4 ml/min; Est GFR (Non-African American) 93.5 ml/min; Magnesium 1.7 mg/dl (1.7-2.4); Potassium 4.2 mmol/L (3.5-5.1)
[2022-04-11] MEDS: HEPARIN SOD 5,000 UNIT/0.5 ML VIAL SQ SCH ×2 (08:11→20:39)
[2022-04-11] MEDS ORDERED: SODIUM CHLORIDE 3 % 100 ML IV ONE (08:47)
[2022-04-11] MEDS ORDERED: STAT IV STA (08:47)
--- NOTE | 2022-04-11 11:04 | Nephrology Progress Note ---
Date of Service April 11, 2022 Assessment & Plan (1) Hyponatremia: Plan: Complicated by hypothyroidism and adrenal insufficiency which can be attributed to Keytruda. Volume status improving. I discussed the patient with Dr. Vizcarra this morning. Adequate thyroid replacement is necessary for management. At this point, I would recommend adding hydrocortisone. It would be reasonable to start with 100 mg and continue 10 mg daily with outpatient follow up with oncology and endocrinology to adjust dose to goal. AM cortisol notably low at 0.4. (2) Melanoma: Plan: Managed by Dr. Preciado. Last Keyruda treatment was held. The patient's management team will need to be contacted regarding recent hospitalization and medication side effects, including persistent dysnatremia and hypothyroidism, and AI. (3) Hypothyroidism: Plan: Levothyroxine management per primary team. Remains clinically hypothyroid. (4) Adrenal insufficiency: Plan: Can be attributed to Keytruda. Recommend start hydrocortisone, such as 100 mg now and 10-20 mg daily following. Admission and Anticipated Discharge Date Admission Date: April 09, 2022 Subjective No events overnight. Still fatigued. Overall states that he feels well and would like to go home today. No fluid retention or edema. Appetite fair. Review of Systems Review of Systems: All systems reviewed & are unremarkable except as noted in HPI & below Physical Exam Constitutional: well developed and + ill appearing; no acute distress Eyes: + anicteric sclerae; no corneal abnormality ENMT: Mouth: no oral mucosal abnormality and oral mucous membranes not dry Neck: normal visual inspection and trachea midline Respiratory: normal respiratory effort Auscultation: lungs clear to auscultation bilaterally Cardiovascular: Rate/Rhythm: regular rate Heart Sounds: normal S1 and normal S2 Extremities: no edema Musculoskeletal: Extremities: no cyanosis and no clubbing Skin: + turgor decreased and + dry skin; no jaundice Neurologic: Motor/Sensory: no tremor and no asterixis Psychiatric: Orientation: alert and oriented x 3 Results & Data ([facility]) Vital Signs (Past 12 Hours) Vital Signs Temp Pulse Pulse Resp BP Pulse Ox O2 Del Method 04/11/22 07:44 75 04/11/22 07:44 Room Air 04/11/22 06:54 36.6 C 77 19 110/70 95 Room Air 04/11/22 03:00 36.5 C 94 H 20 130/72 94 Room Air Laboratory Results Laboratory Results - last 24 hr 04/10/22 04/10/22 04/10/22 09:49 15:15 21:10 WBC RBC Hgb Hct MCV MCH MCHC RDW Std Deviation RDW Coeff of Joshua Plt Count MPV Immature Gran % (Auto) Neut % (Auto) Lymph % (Auto) [place] % (Auto) Eos % (Auto) Baso % (Auto) Neut # (Auto) Lymph # (Auto) [place] # (Auto) Eos # (Auto) Baso # (Auto) Immature Gran # (Auto) Sodium 124 L 125 L 127 L Potassium 4.1 4.2 3.9 Chloride 94 L 96 L 97 L Carbon Dioxide 24 23 25 Anion Gap 6 6 5 BUN 4 L 5 L 6 Creatinine 0.63 0.63 0.61 Est Cr Clr Drug Dosing 113.1 113.1 121.0 Est GFR ( Amer) 112.5 112.5 114.0 Est GFR (Non-Af Amer) 97.1 97.1 98.4 BUN/Creatinine Ratio 6.3 L 7.9 L 9.8 L Glucose 128 H 134 H 163 H Calcium 9.2 9.2 9.1 Phosphorus 3.4 Magnesium Albumin 3.8 Cortisol AM Sample ACTH 04/11/22 04/11/22 04/11/22 07:02 07:02 07:02 WBC 5.58 RBC 4.62 L Hgb 14.0 Hct 39.8 L MCV 86.1 MCH 30.3 MCHC 35.2 RDW Std Deviation 39.3 RDW Coeff of Joshua 12.5 Plt Count 438 H MPV 9.0 L Immature Gran % (Auto) 0.2 Neut % (Auto) 56.1 Lymph % (Auto) 24.2 [place] % (Auto) 16.3 Eos % (Auto) 2.5 Baso % (Auto) 0.7 Neut # (Auto) 3.13 Lymph # (Auto) 1.35 [place] # (Auto) 0.91 H Eos # (Auto) 0.14 Baso # (Auto) 0.04 Immature Gran # (Auto) 0.01 Sodium 129 L Potassium 4.2 Chloride 98 Carbon Dioxide 27 Anion Gap 4 BUN 4 L Creatinine 0.69 Est Cr Clr Drug Dosing 107.0 Est GFR ( Amer) 108.4 Est GFR (Non-Af Amer) 93.5 BUN/Creatinine Ratio 5.8 L Glucose 140 H Calcium 9.2 Phosphorus Magnesium 1.7 Albumin Cortisol AM Sample < 0.40 L ACTH 04/11/22 07:02 WBC RBC Hgb Hct MCV MCH MCHC RDW Std Deviation RDW Coeff of Joshua Plt Count MPV Immature Gran % (Auto) Neut % (Auto) Lymph % (Auto) [place] % (Auto) Eos % (Auto) Baso % (Auto) Neut # (Auto) Lymph # (Auto) [place] # (Auto) Eos # (Auto) Baso # (Auto) Immature Gran # (Auto) Sodium Potassium Chloride Carbon Dioxide Anion Gap BUN Creatinine Est Cr Clr Drug Dosing Est GFR ( Amer) Est GFR (Non-Af Amer) BUN/Creatinine Ratio Glucose Calcium Phosphorus Magnesium Albumin Cortisol AM Sample ACTH Pending PG Care Time/CCT Total # of Minutes Spent Total Time Spent with Patient: Total time spent is greater than 50% in coordination of care (as documented) at patient's floor/unit and/or counseling patient: Coding Level of Care Code 99721 SUB INP/OBS CARE 3/50MIN Diagnoses Hyponatremia E87.1 Melanoma C43.9 Hypothyroidism E03.9 Adrenal insufficiency E27.40
[2022-04-11] MEDS ORDERED: HYDROCORTISONE SOD 100 MG in SYRINGE 0 ML IV STA (15:57)
--- NOTE | 2022-04-11 16:25 | Orthopedic Consultation ---
Date of Service April 11, 2022 Assessment & Plan (1) Osteoarthritis of left shoulder: Osteoarthritic flare of his left shoulder. I discussed potential of another injection. I did check with Dr. Mann of nephrology, who was agreeable to the injection in addition to the hydrocortisone therapy. The patient and his decided to see if he would respond to the hydrocortisone therapy before undergoing the left shoulder injection. Patient can follow-up with Dr. Jenkins upon discharge. Please contact myself or Dr. Jenkins if that is proceed with the injection before discharge. History of Present Illness Reason for Consultation: Left shoulder pain, chronic Requesting Physician: . Attending Physician: Lavelle Vizcarra MD 76-year-old male admitted for weakness and confusion related to hyponatremia and hypothyroidism complains of chronic left shoulder pain. He is followed in our outpatient clinic. He has a history of right shoulder arthroplasty with excellent response. His left shoulder has been just as painful. There was a plan to do shoulder replacement surgery, but this has been delayed by treatment for melanoma. His was at the bedside via majority of the history due to some hearing difficulties. He had his last injection in September with Dr. Jenkins. They are curious if he could have another injection during this inpatient stay because his shoulder pain is quite bothersome. He is being started on hydrocortisone therapy by nephrology for some adrenal insufficiency. Allergies Allergy/AdvReac Type Severity Reaction Status Date / Time Sulfa (Sulfonamide Allergy Intermediate Hives Verified 04/09/22 15:43 Antibiotics) Home Medications Medication Instructions Recorded Confirmed Type vit C 250 mg-vit E 90 mg-zinc 40 1 tab PO DAILY 01/01/19 04/09/22 History mg-copper 1 [id number] capsule (PreserVision AREDS-2) Latuda Injection 1 dose INJ .Q3WK 04/09/22 04/09/22 History acetaminophen 500 mg tablet 1,000 mg PO DIRECTED PRN Pain 04/09/22 04/09/22 History (Tylenol Extra Strength) levothyroxine 112 mcg tablet 112 mcg PO DAILYBB 04/09/22 04/09/22 History Past Med/Surg History Medical History Diverticular disease ELEM (hard of hearing) Hypothyroidism Melanoma Diagnosed Feb 2021 - [facility] - not known to be metastatic. Last PET Jan 2022. 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 (~01/2019) Family History Father Colon cancer Social History Smoking Status: Former smoker Second Hand Exposure: No; Do You Dip or Chew Tobacco: No; Tobacco Cessation Education Requested by Patient: No Hx Alcohol Use: No Hx Substance Use: No Preferred Language: Hungarian Communication Ability: Effective Distribution Specialist Required: No Beliefs That Will Affect Care: None marital status: Current Living Situation: Spouse Other Information That Helps Us Care for You: No Feels Safe at Home: Yes Safety Concerns: Feels Safe At This Time Assistive Devices: Walker and Wheelchair Review of Systems All systems reviewed & are unremarkable except as noted in HPI & below. Physical Exam . Constitutional WD/WN, vitals as above Respiratory normal respiratory effort; no respiratory distress Cardiovascular Extremities: normal capillary refill; no edema Chest (Breasts) Chest: normal inspection of chest Psychiatric A+Ox3, euthymic affect Eye Contact: good eye contact Results & Data Results & Data Laboratory Results . Diagnostic Findings . PG Care Time/CCT Total # of Minutes Spent Total Time Spent with Patient: Total time spent is greater than 50% in coordination of care (as documented) at patient's floor/unit and/or counseling patient: Coding Level of Care Code INP/OBS CONSULT LVL 3, 45 MIN Diagnoses Osteoarthritis of left shoulder M19.012
[2022-04-11 18:19] LABS: BUN Creatinine Ratio 12.9 (10-20); Calcium 9.1 mg/dl (8.5-10.1); Creatinine Clr Calc Pharmacy 119.1 ml/min; Est GFR (African American) 113.3 ml/min; Est GFR (Non-African American) 97.7 ml/min; Potassium 4.2 mmol/L (3.5-5.1)
[2022-04-11] MEDS ORDERED: SODIUM CHLORIDE 3 % 150 ML IV ONE (19:46)
[2022-04-12] MEDS: LEVOTHYROXINE SODIUM 125 MCG TABLET PO SCH (05:58)
[2022-04-12 06:42] LABS: BUN Creatinine Ratio 12.7 (10-20); Calcium 9.2 mg/dl (8.5-10.1); Creatinine Clr Calc Pharmacy 117.1 ml/min; Est GFR (African American) 112.5 ml/min; Est GFR (Non-African American) 97.1 ml/min; Magnesium 1.7 mg/dl (1.7-2.4); Potassium 4.1 mmol/L (3.5-5.1)
--- NOTE | 2022-04-12 07:11 | Hospitalist Progress Note ---
Date of Service April 12, 2022 Assessment & Plan (1) Acute hyponatremia: Plan: Patient presented with worsening weakness, confusion and noted to have a sodium of 124 on admission Urine osmolality= 142, urine sodium= 34; indicative of hypotonic hyponatremia -> likely secondary to Keytruda in the setting of hypothyroidism, adrenal insufficiency - Sodium un to 131 this morning - Continue fluid restriction - Monitor daily BMP - Nephrology consulted and appreciate recommendations. (2) Hypothyroidism: Plan: TSH has been steadily climbing, his TSH today was 22.178 with a free T4 of 0.82 (FT4 normal). Likely contributing to hyponatremia Levothyroxine increased to 125 mcg daily; will need to recheck in 6-8 weeks (3) Melanoma: Plan: On Keytruda therapy; last dose 1 month ago Noted on CTAP 03/30/2022 to have mildly enlarged and asymmetric lymph nodes in the left anterior chest wall/infra axillary region, which will require follow-up with oncologist. (4) Weakness: Plan: Suspect secondary to hyponatremia and deconditioning from recent hospitalization and illness. PT and OT orders placed; recommending IP rehab (5) Hypomagnesemia: Plan: Magnesium of 1.5 on admission, repleted. (6) Adrenal insufficiency: Plan: - likely secondary to Keytruda - Got 100mg 04/11, plan for 10mg daily (7) Osteoarthritis of left shoulder: Plan: - cortisone injections in the past, defer at this time as we are starting him on systemic steriods Plan Heparin 5000 units SQ every 12 for DVT prophylaxis Regular diet with 1200 cc fluid restriction, easy to chew Telemetry for cardiac monitoring Patient is a full code Admission and Anticipated Discharge Date Admission Date: April 09, 2022 Supervising Physician Co-Signing Physician Notes Attending attestation Pt seen and examined in concert with Dr. Barnes. In agreement with the documented findings as noted in the resident documentation with any exceptions or additions as noted here. Significant improvement in mentation and mobility with reporting decreased left shoulder pain after starting HC. On examination, S1/S2 nl RRR no MCG. CTAB. Abd NT/ND BS+ve. Limited abduction of the left shoulder 2/2 pain past 90 degrees which is baseline (or slightly better) for him. Hyponatremia in the setting of melanoma on keytruda, last dose >1 mo ago, cortisol deficiency - nephro consult - continue HC 10mg, free water restriction. Check AM BMP Hypothyroidism - recently adjusted outpatient from 100mcg to 112mcg - upadjusted to 125mcg on 04.10.22. Recheck TSH in 6-8 wks Left shoulder pain - reviewed options, IACS per primary vs. ortho - as is getting HC therapy, will defer injection treatments at this time but can follow up for same in outpatient Else see resident documentation as noted. Subjective Feeling better this morning. More energy. Shoulder is doing better. Up and in chair. Tolerating good PO intake. Review of Systems Review of Systems: As per above Physical Exam Physical Exam: Constitutional: well-appearing, no acute distress HEENT: NCAT, no conjunctival injection CV: regular rhythm, no murmur appreciated, extremities well-perfused, no LE edema Resp: CTABL, no wheezes/rales/rhonchi appreciated, no increased work of breathing MSK: no gross deformities appreciated Skin: warm, dry, no rash appreciated Neuro: alert, oriented, no focal neurologic deficit appreciated Results & Data Results & Data ([facility]) Vital Signs (Past 12 Hours) Vital Signs Temp Pulse Pulse Resp BP Pulse Ox O2 Del Method 04/12/22 02:30 36.9 C 89 20 131/83 98 Room Air 04/11/22 22:30 36.9 C 91 H 18 105/64 92 Room Air 04/11/22 22:00 89 04/11/22 20:15 Room Air Resident Activity Tracking Resident Involvement: Resident Care Provided Care Provided: Adult Hospital Medicine
[2022-04-12] MEDS: HYDROCORTISONE 10 MG TAB PO SCH (08:14)
[2022-04-12] MEDS: HEPARIN SOD 5,000 UNIT/0.5 ML VIAL SQ SCH ×2 (08:14→20:15)
--- NOTE | 2022-04-12 15:21 | Nephrology Progress Note ---
Date of Service April 12, 2022 Assessment & Plan (1) Hyponatremia: Plan: Secondary to hypothyroidism and adrenal insufficiency which can be attributed to Keytruda. Volume status acceptable. Treatment with levothyroxine and hydrocortisone with close outpatient monitoring. Encourage follow up with endocrinology post discharge. Remains on free water restriction. (2) Melanoma: Plan: Dr. Preciado will need to be notified. (3) Hypothyroidism: Plan: Levothyroxine. Close outpatient follow up. (4) Adrenal insufficiency: Plan: Can be attributed to Keytruda. Recommend start hydrocortisone, such as 100 mg now and 10-20 mg daily following. Admission and Anticipated Discharge Date Admission Date: April 09, 2022 Subjective No acute events overnight. Improvement noted overall. Hopes to be discharged home soon. Review of Systems Review of Systems: All systems reviewed & are unremarkable except as noted in HPI & below Physical Exam Constitutional: well developed and + ill appearing; no acute distress Eyes: + anicteric sclerae; no corneal abnormality ENMT: Mouth: no oral mucosal abnormality and oral mucous membranes not dry Neck: normal visual inspection and trachea midline Respiratory: normal respiratory effort Auscultation: lungs clear to auscultation bilaterally Cardiovascular: Rate/Rhythm: regular rate Heart Sounds: normal S1 and normal S2 Extremities: no edema Musculoskeletal: Extremities: no cyanosis and no clubbing Skin: + turgor decreased and + dry skin; no jaundice Neurologic: Motor/Sensory: no tremor and no asterixis Psychiatric: Orientation: alert and oriented x 3 Results & Data ([facility]) Vital Signs (Past 12 Hours) Vital Signs Pulse Pulse Resp BP Pulse Ox O2 Del Method 04/12/22 11:21 74 18 123/73 99 Room Air 04/12/22 07:32 65 Laboratory Results Laboratory Results - last 24 hr 04/11/22 04/12/22 17:04 05:57 Sodium 128 L 131 L Potassium 4.2 4.1 Chloride 99 102 Carbon Dioxide 24 24 Anion Gap 5 5 BUN 8 8 Creatinine 0.62 0.63 Est Cr Clr Drug Dosing 119.1 117.1 Est GFR ( Amer) 113.3 112.5 Est GFR (Non-Af Amer) 97.7 97.1 BUN/Creatinine Ratio 12.9 12.7 Glucose 164 H 192 H Calcium 9.1 9.2 Magnesium 1.7 PG Care Time/CCT Total # of Minutes Spent Total Time Spent with Patient: Total time spent is greater than 50% in coordination of care (as documented) at patient's floor/unit and/or counseling patient: Coding Level of Care Code 72089 SUB INP/OBS CARE 350MIN Diagnoses Hyponatremia E87.1 Melanoma C43.9 Hypothyroidism E03.9 Adrenal insufficiency E27.40
[2022-04-12 17:15] LABS: BUN Creatinine Ratio 16.7 (10-20); Calcium 9.5 mg/dl (8.5-10.1); Creatinine Clr Calc Pharmacy 102.5 ml/min; Est GFR (African American) 106.5 ml/min; Est GFR (Non-African American) 91.9 ml/min; Potassium 4.4 mmol/L (3.5-5.1)
[2022-04-13 06:05] LABS: Basophils # (auto) 0.06 K/uL (0-0.2); Basophils % (auto) 1.1 %; Eosinophils # (auto) 0.24 K/uL (0-0.50); Eosinophils % (auto) 4.3 %; Hematocrit (blood only) 34.9 % (42.0-52.0); Hemoglobin 12.3 g/dl (14.0-18.0); Immature Granulocytes # (auto) 0.02 K/uL (0.01-0.20); Immature Granulocytes % (auto) 0.4 %; Lymphocytes # (auto) 2.02 K/uL (1.2-3.4); Lymphocytes % (auto) 36.4 %; Mean Corpuscular Hemoglobin 30.1 pg (25.0-34.0); Mean Corpuscular Hgb Conc 35.2 g/dL (32.0-36.0); Mean Corpuscular Volume 85.3 fL (80.0-100.0); Mean Platelet Volume 9.1 fL (9.4-12.4); Monocytes % (auto) 14.4 %; Neutrophils # (auto) 2.41 K/uL (1.40-6.50); Neutrophils % (auto) 43.4 %; Platelet Count 395 K/uL (130-400); RDW Coefficient of Variation 12.8 % (11.5-14.5); RDW Standard Deviation 39.4 fL (36.4-46.3); Red Blood Count 4.09 M/uL (4.70-6.10); White Blood Count 5.55 K/ul (4.8-10.8)
[2022-04-13 06:17] LABS: Albumin Globulin Ratio 1.6 (0.9-2); Albumin Level 3.6 gm/dl (3.4-5.0); BUN Creatinine Ratio 19.4 (10-20); Bilirubin,Total 0.5 mg/dl (0.2-1.0); Calcium 8.9 mg/dl (8.5-10.1); Creatinine Clr Calc Pharmacy 102.4 ml/min; Est GFR (African American) 106.5 ml/min; Est GFR (Non-African American) 91.9 ml/min; Globulin 2.3 gm/dl (2.5-4.0); Total Protein 5.9 gm/dl (6.0-8.3)
[2022-04-13] MEDS: ACETAMINOPHEN 325 MG TAB PO PRN (06:29)
[2022-04-13] MEDS: LEVOTHYROXINE SODIUM 125 MCG TABLET PO SCH (06:30)
--- NOTE | 2022-04-13 07:05 | Hospitalist Progress Note ---
Date of Service April 13, 2022 Assessment & Plan (1) Hyponatremia: Plan: Patient presented with worsening weakness, confusion and noted to have a sodium of 124 on admission Urine osmolality= 142, urine sodium= 34; indicative of hypotonic hyponatremia -> likely secondary to Keytruda in the setting of hypothyroidism, adrenal insufficiency - Sodium un to 133 this morning - Continue fluid restriction - Monitor daily BMP - Nephrology consulted and appreciate recommendations. - Plan to check BMP 1 week post discharge and f/u with nephrology 1-2 weeks post discharge (2) Hypothyroidism: Plan: TSH has been steadily climbing, his TSH today was 22.178 with a free T4 of 0.82 (FT4 normal). Likely contributing to hyponatremia Levothyroxine increased to 125 mcg daily; will need to recheck in 6-8 weeks (3) Adrenal insufficiency: Plan: - likely secondary to Keytruda - Got 100mg hydrocortisone 04/11, plan for 10mg daily (4) Osteoarthritis of left shoulder: Plan: - cortisone injections in the past, defer at this time as we are starting him on systemic steroids - Plan to f/u OP for further injections (5) Melanoma: Plan: On Keytruda therapy; last dose 1 month ago Noted on CTAP 03/30/2022 to have mildly enlarged and asymmetric lymph nodes in the left anterior chest wall/infra axillary region, which will require follow-up with oncologist. (6) Weakness: Plan: Suspect secondary to hyponatremia and deconditioning from recent hospitalization and illness. PT and OT orders placed; recommending IP rehab. Both pt and family are agreeable (7) Hypomagnesemia: Plan: Magnesium of 1.5 on admission, repleted. Resolved Plan Heparin 5000 units SQ every 12 for DVT prophylaxis Regular diet with 1200 cc fluid restriction, easy to chew Telemetry for cardiac monitoring Patient is a full code Admission and Anticipated Discharge Date Admission Date: April 09, 2022 Subjective Doing well this morning. States that he was able to walk a few labs around the hallway yesterday. Overall has more energy and shoulder is starting to feel a little better. Review of Systems Review of Systems: As per above Physical Exam Physical Exam: Constitutional: well-appearing, no acute distress HEENT: NCAT, no conjunctival injection CV: regular rhythm, no murmur appreciated, extremities well-perfused, no LE edema Resp: CTABL, no wheezes/rales/rhonchi appreciated, no increased work of breathing MSK: no gross deformities appreciated Skin: warm, dry, no rash appreciated Neuro: alert, oriented, no focal neurologic deficit appreciated Results & Data Results & Data ([facility]) Vital Signs (Past 12 Hours) Vital Signs Temp Pulse Pulse Resp BP Pulse Ox O2 Del Method 04/13/22 02:44 36.7 C 85 20 136/81 96 Room Air 04/12/22 22:00 76 04/12/22 23:34 36.6 C 75 18 144/71 H 96 Room Air 04/12/22 20:00 Room Air 04/12/22 19:12 36.4 C L 78 19 145/85 H 96 Room Air Resident Activity Tracking Resident Involvement: Resident Care Provided Care Provided: Adult Hospital Medicine
[2022-04-13] MEDS: HEPARIN SOD 5,000 UNIT/0.5 ML VIAL SQ SCH (08:15)
[2022-04-13] MEDS: HYDROCORTISONE 10 MG TAB PO SCH (08:15)
--- NOTE | 2022-04-13 10:54 | Nephrology Progress Note ---
Date of Service April 13, 2022 Assessment & Plan (1) Hyponatremia: Plan: Secondary to hypothyroidism and adrenal insufficiency attributed to Keytruda. Volume status acceptable. Treatment with levothyroxine and hydrocortisone with close outpatient monitoring will be required. Encourage follow up with endocrinology post discharge. I discussed the plan of care with Dr. Dillon this AM. Remains on free water restriction which is encouraged. Please check a metabolic profile within 1 week of discharge and fax results to the nephrology clinic at [phone]. Outpatient follow up with me in the nephrology clinic should be arranged within 2 weeks of discharge. (2) Melanoma: Plan: Dr. Preciado will need to be notified and close outpatient follow up arranged. (3) Hypothyroidism: Plan: Levothyroxine. Encourage outpatient endocrinology consultation. (4) Adrenal insufficiency: Plan: Can be attributed to Keytruda. Plans for continued daily hydrocortisone with stress dosing 10-20 mg daily reviewed with Dr. Dillon this AM. Close outpatient follow up to be arranged at discharge. No additional recommendations at this time. Nephrology will sign-off from inpatient monitoring. Please arrange outpatient follow up with me within 1-2 week of discharge. Call with any questions or concerns. Admission and Anticipated Discharge Date Admission Date: April 09, 2022 Subjective No acute events overnight. Overall improvement noted. Out of bed and ambulating with walker. Denies dyspnea. Strength improving. No fluid retention or edema. Jeffy hopes to be discharged home today. Appetite is good. Review of Systems Review of Systems: All systems reviewed & are unremarkable except as noted in HPI & below Physical Exam Constitutional: well developed; no acute distress Eyes: + anicteric sclerae; no corneal abnormality ENMT: Mouth: no oral mucosal abnormality and oral mucous membranes not dry Neck: normal visual inspection and trachea midline Respiratory: normal respiratory effort Auscultation: lungs clear to auscultation bilaterally Cardiovascular: Rate/Rhythm: regular rate Heart Sounds: normal S1 and normal S2 Extremities: no edema Musculoskeletal: Extremities: no cyanosis and no clubbing Skin: + turgor decreased and + dry skin; no jaundice Neurologic: Motor/Sensory: no tremor and no asterixis Psychiatric: Orientation: alert and oriented x 3 Results & Data ([facility]) Vital Signs (Past 12 Hours) Vital Signs Temp Pulse Resp BP Pulse Ox O2 Del Method 04/13/22 08:00 Room Air 04/13/22 08:06 36.6 C 71 19 137/83 96 Room Air 04/13/22 02:44 36.7 C 85 20 136/81 96 Room Air 04/12/22 23:34 36.6 C 75 18 144/71 H 96 Room Air Laboratory Results Laboratory Results - last 24 hr 04/12/22 04/13/22 04/13/22 15:46 05:39 05:39 WBC 5.55 RBC 4.09 L Hgb 12.3 L Hct 34.9 L MCV 85.3 MCH 30.1 MCHC 35.2 RDW Std Deviation 39.4 RDW Coeff of Joshua 12.8 Plt Count 395 MPV 9.1 L Immature Gran % (Auto) 0.4 Neut % (Auto) 43.4 Lymph % (Auto) 36.4 Luce % (Auto) 14.4 Eos % (Auto) 4.3 Baso % (Auto) 1.1 Neut # (Auto) 2.41 Lymph # (Auto) 2.02 Luce # (Auto) 0.80 H Eos # (Auto) 0.24 Baso # (Auto) 0.06 Immature Gran # (Auto) 0.02 Sodium 130 L 133 L Potassium 4.4 4.0 Chloride 99 101 Carbon Dioxide 25 26 Anion Gap 6 6 BUN 12 14 Creatinine 0.72 0.72 Est Cr Clr Drug Dosing 102.5 102.4 Est GFR ( Amer) 106.5 106.5 Est GFR (Non-Af Amer) 91.9 91.9 BUN/Creatinine Ratio 16.7 19.4 Glucose 196 H 136 H Calcium 9.5 8.9 Total Bilirubin 0.5 AST 33 ALT 38 Alkaline Phosphatase 68 Total Protein 5.9 L Albumin 3.6 Globulin 2.3 L Albumin/Globulin Ratio 1.6 PG Care Time/CCT Total # of Minutes Spent Total Time Spent with Patient: Total time spent is greater than 50% in coordination of care (as documented) at patient's floor/unit and/or counseling patient: Coding Level of Care Code 71913 SUB INP/OBS CARE 3/50MIN Diagnoses Hyponatremia E87.1 Melanoma C43.9 Hypothyroidism E03.9 Adrenal insufficiency E27.40
--- NOTE | 2022-04-13 16:49 | Discharge Summary ---
Date of Service April 13, 2022 Admission HPI Per Admitting Provider 76-year-old male past medical history significant for melanoma, hypothyroidism, recent admission with hyponatremia presents to the ER for worsening weakness and confusion as well as leg cramping since discharge from the hospital about a week ago. Recently discharged from [facility] on 04/01/2022 with a diagnosis of pancreatitis, and his hyponatremia was suspected to be due to GI losses at that time. He was discharged with close PCP follow-up. Unfortunately, patient has continued to have confusion, weakness, and fatigue such that he sleeps most of the day. During PCP follow-up appointment today patient was noted to be presyncopal and diaphoretic, improved with lying flat. Patient was transported to the ER from PCP office. In the ER patient was noted to have lab work significant for stable hemoglobin of 13.3, sodium of 124 (baseline around 133 with discharge sodium of 129 on 04/01), TSH of 22.1 with a free T4 of 0.82, magnesium of 1.5. Patient was given IV fluids and hospitalist service was consulted for admission. Patient denies complaints of chest pain, shortness of breath, abdominal pain, nausea, vomiting, diarrhea, fevers at home. Admission Exam Per Admitting Provider Constitutional: well developed and well nourished; no acute distress Tired appearing Eyes: PERRL, conjunctivae normal, anicteric sclerae ENMT: external ear and nose normal, oropharynx normal Neck:K trachea midline, no thyromegaly Respiratory: normal respiratory effort, lungs clear to auscultation Cardiovascular: RRR, no murmur, no edema Gastrointestinal (Abdomen): normal bowel sounds, soft, nontender, no hepatosplenomegaly Musculoskeletal: no cyanosis or clubbing, extremities motor strength 5/5 Skin: no rashes, warm and dry (Right back with notable biconvex large scar from melanoma surgery) Neurologic: AAOx3, normal speech. PERRLA, EOMI, no nystagmus. Bilateral UE, LE, and face without sensory or motor deficits. No tremor. Psychiatric: A+Ox3, euthymic affect Principal Diagnosis Hyponatremia, Adrenal Insufficiency Discharge Exam Constitutional: well-appearing, no acute distress HEENT: NCAT, no conjunctival injection CV: regular rhythm, no murmur appreciated, extremities well-perfused, no LE edema Resp: CTABL, no wheezes/rales/rhonchi appreciated, no increased work of breathing MSK: no gross deformities appreciated Skin: warm, dry, no rash appreciated Neuro: alert, oriented, no focal neurologic deficit appreciated Discharge Data Allergies Allergy/AdvReac Type Severity Reaction Status Date / Time Sulfa (Sulfonamide Allergy Intermediate Hives Verified 04/09/22 15:43 Antibiotics) Consultations 04/09/22 15:41 ED Decision to Admit Stat 04/09/22 16:44 Consult Nephrology Routine 04/11/22 13:20 Consult Orthopedic Surgery Routine Ordered Studies 04/09/22 12:08 CT head/brain wo con Stat Laboratory Results WBC 5.55 K/ul (4.8-10.8) 04/13/22 05:39 RBC 4.09 M/uL (4.70-6.10) L 04/13/22 05:39 Hgb 12.3 g/dl (14.0-18.0) L 04/13/22 05:39 Hct 34.9 % (42.0-52.0) L 04/13/22 05:39 MCV 85.3 fL (80.0-100.0) 04/13/22 05:39 MCH 30.1 pg (25.0-34.0) 04/13/22 05:39 MCHC 35.2 g/dL (32.0-36.0) 04/13/22 05:39 RDW Std Deviation 39.4 fL (36.4-46.3) 04/13/22 05:39 RDW Coeff of Joshua 12.8 % (11.5-14.5) 04/13/22 05:39 Plt Count 395 K/uL (130-400) 04/13/22 05:39 MPV 9.1 fL (9.4-12.4) L 04/13/22 05:39 Immature Gran % (Auto) 0.4 % 04/13/22 05:39 Neut % (Auto) 43.4 % 04/13/22 05:39 Lymph % (Auto) 36.4 % 04/13/22 05:39 Troup % (Auto) 14.4 % 04/13/22 05:39 Eos % (Auto) 4.3 % 04/13/22 05:39 Baso % (Auto) 1.1 % 04/13/22 05:39 Neut # (Auto) 2.41 K/uL (1.40-6.50) 04/13/22 05:39 Lymph # (Auto) 2.02 K/uL (1.2-3.4) 04/13/22 05:39 Troup # (Auto) 0.80 K/uL (0.11-0.59) H 04/13/22 05:39 Eos # (Auto) 0.24 K/uL (0-0.50) 04/13/22 05:39 Baso # (Auto) 0.06 K/uL (0-0.2) 04/13/22 05:39 Immature Gran # (Auto) 0.02 K/uL (0.01-0.20) 04/13/22 05:39 Sodium 133 mmol/L (136-145) L 04/13/22 05:39 Potassium 4.0 mmol/L (3.5-5.1) 04/13/22 05:39 Chloride 101 mmol/L (98-107) 04/13/22 05:39 Carbon Dioxide 26 mmol/L (21-32) 04/13/22 05:39 Anion Gap 6 (3-11) 04/13/22 05:39 BUN 14 mg/dl (6-23) 04/13/22 05:39 Creatinine 0.72 mg/dl (0.6-1.4) 04/13/22 05:39 Est Cr Clr Drug Dosing 102.4 ml/min 04/13/22 05:39 Est GFR ( Amer) 106.5 ml/min 04/13/22 05:39 Est GFR (Non-Af Amer) 91.9 ml/min 04/13/22 05:39 BUN/Creatinine Ratio 19.4 (10-20) 04/13/22 05:39 Glucose 136 mg/dl (70-99(Fasting)) H 04/13/22 05:39 Osmolality 259 mOsm/kg (280-300) L 04/09/22 11:35 Calcium 8.9 mg/dl (8.5-10.1) 04/13/22 05:39 Phosphorus 3.4 mg/dl (2.5-4.9) 04/10/22 15:15 Magnesium 1.7 mg/dl (1.7-2.4) 04/12/22 05:57 Total Bilirubin 0.5 mg/dl (0.2-1.0) 04/13/22 05:39 AST 33 U/L (13-39) 04/13/22 05:39 ALT 38 U/L (7-52) 04/13/22 05:39 Alkaline Phosphatase 68 U/L (34-104) 04/13/22 05:39 Total Protein 5.9 gm/dl (6.0-8.3) L 04/13/22 05:39 Albumin 3.6 gm/dl (3.4-5.0) 04/13/22 05:39 Globulin 2.3 gm/dl (2.5-4.0) L 04/13/22 05:39 Albumin/Globulin Ratio 1.6 (0.9-2) 04/13/22 05:39 TSH 22.178 uIu/ml (0.300-4.500) H 04/09/22 11:35 Free T4 0.82 ng/dl (0.61-1.60) 04/09/22 11:35 Cortisol AM Sample < 0.40 mcg/dl (6.2-22.6) L 04/11/22 07:02 Urine Osmolality 142 mOsm/kg (500-800) L 04/09/22 23:40 Ur Random Sodium 34 mmol/L 04/09/22 23:40 SARS-CoV-2, RNA, NAAT NEGATIVE (NEGATIVE) 04/09/22 12:45 Impressions Chest X-Ray 04/09/22 12:08 SINGLE VIEW CHEST CLINICAL HISTORY: Dizziness. FINDINGS: 2 AP, portable, upright chest radiographs are compared to study dated 03/30/2022. The heart is enlarged. The pulmonary vasculature is noncongested. Chronic interstitial thickening is similar to previous. There is bibasilar scarring/atelectasis. No airspace consolidation or large pleural effusion is identified. No pneumothorax is seen. The skeletal structures are osteopenic. The bony thorax is grossly intact. A right shoulder arthroplasty is in place. Advanced arthritic changes seen in the left shoulder. IMPRESSION: Cardiomegaly with no acute cardiopulmonary abnormality identified. ACT 112: Negative or not required by law. Electronically signed by: Sterling Lopez M.D. 04/09/2022 12:[address] 04/09/22 12:[address] DOSE: 691.05 mGy.cm HISTORY: dizzy, vision changes TECHNIQUE: Multiaxial CT images of the head were performed without the use of intravenous contrast. Automated exposure control was utilized for this study. A dose lowering technique was utilized adhering to the principles of ALARA. Comparison: None. Findings: Mild to moderate mucosal thickening within the paranasal sinuses. The calvarium and skull base are intact. The ventricles and sulci are within normal limits. There is no mass, hematoma, midline shift, or acute infarct. Impression: No acute intracranial abnormality. ACT 112: Negative or not required by law. Electronically signed by: Adolfo Ramirez M.D. 04/09/2022 1:23 PM Hospital Course (1) Hyponatremia: Patient presented with worsening weakness, confusion and noted to have a sodium of 124 on admission Urine osmolality= 142, urine sodium= 34; indicative of hypotonic hyponatremia -> likely secondary to Keytruda in the setting of hypothyroidism, adrenal insufficiency - Sodium up to 133 this morning - Continue fluid restriction - Nephrology consulted - Plan to check BMP 1 week post discharge and f/u with nephrology 1-2 weeks post discharge (2) Adrenal insufficiency: - likely secondary to Keytruda - Got 100mg hydrocortisone 04/11, plan for 10mg daily (3) Hypothyroidism: TSH has been steadily climbing, his TSH today was 22.178 with a free T4 of 0.82 (FT4 normal). Likely contributing to hyponatremia Levothyroxine increased to 125 mcg daily; will need to recheck in 6-8 weeks Referral placed for endocrinology (4) Osteoarthritis of left shoulder: - cortisone injections in the past, defer at this time as we are starting him on systemic steroids - Plan to f/u OP for further injections (5) Melanoma: On Keytruda therapy; last dose 1 month ago Noted on CTAP 03/30/2022 to have mildly enlarged and asymmetric lymph nodes in the left anterior chest wall/infra axillary region, which will require follow-up with oncologist. - Will need f/u with oncologist; he states that his next appointment is in April (6) Weakness: Suspect secondary to hyponatremia and deconditioning from recent hospitalization and illness. PT and OT orders placed; up evaluation with recommendations for home. Home health and PT referrals placed. (7) Hypomagnesemia: Magnesium of 1.5 on admission, repleted. Resolved Total Time Total Time Spent Total Time Spent (In Minutes): 30 Discharge Plan Discharge Items Patient Disposition: Home - Home Health Services Reason For Visit: ACUTE HYPONATREMIA, WEAKNESS, PRE-SYNCOPE Discharge Diagnosis: Hyponatremia, Adrenal Insufficiency Activity: Per Instructions section Non-emergency contact: Primary Care Provider and Spiral Runner Call non-emergency contact if: you have any medication questions and your symptoms worsen Follow-up/Referrals: Elia Albert MD [Physician] - (As soon as possible. [facility] paralegal secretary will call you Saturday with your appt dates.) Ashok Mann DO [Physician] - (1-2 weeks ) Joe Luna PA-C [Primary Care Provider] - Kerry Preciado MD [Outside Practitioners] - Diet: Regular Fluids: 1200ml (5 cups) Ambulatory Orders: Basic Metabolic Panel (Routine) Timeframe: 1 Week Location: Determined by Patient Ordered By: Lisa Bang Attending Provider Instructions: You were admitted for fatigue/weakness that was caused by a variety of different factors. We think the Keytruda was likely a driving factor. Your sodium was low. We were able to correct your sodium and get it back to a normal level. In order to ensure that it does not drop too low moving forward, we would like you to continue to restrict your fluids to 1200ml (5 cups) per day. We also found that your cortisol level was pretty low. We started your on hydrocortisone to help co rrect this. We will send a prescription to the pharmacy for this. You should take 10mg once a day. We also increased your TSH to 125mcg based on your levels when you were admitted. You should this once a day. Your primary care doctor will follow up these levels in 6-8 weeks to ensure that this is the right dose for you. You were seen by the pickle processor here; Dr. Mann. He would like to see you in his office in 1-2 weeks. We will reach out to you to get an appointment scheduled. He had also recommenced seeing an bariatric nurse. We will put in a referral and someone should reach out to you to help you schedule an appointment. You should also follow up with your primary care doctor within 1 week of discharge. We will reach out to him to try and get an appointment scheduled, you can also call his office to scheduled an appointment. You have been on the Keytruda. You should reach out to your oncologist office, Dr. Preciado so that you can talk about a plan moving forward. Pending Studies at Discharge: No Stand-Alone Forms: My [facility], Smoking Cessation Medications and DC Order Prescriptions: New levothyroxine [Synthroid] 125 mcg Tablet 125 mcg PO DAILYBB 30 Days Qty: 30 0RF hydrocortisone [Cortef] 10 mg Tablet 10 mg PO QAM 30 Days Qty: 30 0RF Continued PreserVision AREDS-2 [id number] Capsule 1 tab PO DAILY acetaminophen [Tylenol Extra Strength] 500 mg Tablet 1,000 mg PO DIRECTED PRN (Reason: Pain) Discontinued levothyroxine 112 mcg tablet 112 mcg PO DAILYBB Latuda Injection 1 dose [id number] Rx Instructions: PER PT'S FAMILY "DUE LAST SATURDAY, ON HOLD UNTIL STOMACH ISSUES ARE RESOLVED". Discharge Orders: Discharge Order (Routine); Ordered 04/13/22 Ordered By: Lisa Barnes Admission Data Admit Date/Time: 04/09/22 16:44 Attending Provider: Monty Dillon Admit Provider: Vanessa Casillas Primary Care Provider: Joe Luna Other Providers: Ashok Mann ; Vanessa Casillas ; Chris Jenkins ; [facility] ; [facility] Other Interventions: Discharge Summary Assessment (RN) Last Done: 04/13/22 17:31 Supervising Physician Co-Signing Physician Notes I also saw the patient confirmed arauz portions of the history and physical examination. I also discussed the case with the nephrology dynamics ax consultant. I agree with the impression and plan as noted in the resident discharge summary. The patient is seen late morning, just before lunch, he is eating without complaints. He overall feels much better. Daughter is at bedside. Discussed with daughter and case management - preferred inpatient rehabilitation, although question if he would be accepted given his degree of ambulation. Also discussed SNF, although again, question if he had a skilled need. Later in the afternoon, the patient was able to ambulate in the hallway without difficulty, and physical therapy recommended return to home with home health. Resident physician discussed with with both on the phone, and later with daughter again. Daughter believes they will be able to provide appropriate care at home; she will assist patient's over the weekend. Patient will need outpatient follow-up with nephrology as noted. Additional per resident discharge documentation Resident Activity Tracking Resident Involvement: Resident Care Provided Care Provided: Adult Hospital Medicine
--- NOTE | 2022-04-20 17:00 | Coding Query ---
To promote full compliance with coding requirements relating to patient care, provider participation is requested in all cases of network development coordinator uncertainty. Please assist us with the question(s) below: Coding Question(s): The diagnosis below was documented in the H&P and 04/10 and 04/11 Progress Notes, then subsequently fell off all further documentation. Please indicate if it is still a possible diagnosis or ruled out. Physician's Response(s): SIADH - (documentation of suggested SIADH on H&P and the 04/10 & 04/11 Progress Notes document Patient presented with worsening weakness, confusion and noted to have a sodium of 124 on admission Urine osmolality= 142, urine sodium= 34; indicative of hypotonic hyponatremia -> SIADH vs hypothyroidism-> likely secondary to Keytruda in the setting of hypothyroidism, adrenal insufficiency) ( X ) Diagnosed and POA ( ) Diagnosed and not POA ( ) Ruled out ( ) Other (please specify) MTDD
== END 2022-04-13 18:25 | disposition home health service (06) | DRG 644 ==
LOC: ED 11:25 → 2S 16:44 → SUATTDRO 16:44 → 2S 18:28